=== PATIENT | female | born 1950 | race Caucasian/White ===

== ENCOUNTER → 2017-11-19 | Outpatient (CLI) | payer MEDICARE ==
--- NOTE | 2017-11-19 08:56 | CT ---
EXAMINATION TYPE: CT wrist RT wo con DATE OF EXAM: 11/19/2017 COMPARISON: NONE HISTORY: Fx, wrist pain, fall CT DLP: 97.3 mGycm Automated exposure control for dose reduction was used. FINDINGS: There is a comminuted intra-articular distal radial fracture with approximately 6 mm foreshortening f rom impaction injury. Extension into the radiocarpal joint is multifocal. The most displaced fracture fragment is seen of the ulnar aspect displaced 7 mm medially (ulnar) and 4 mm anteriorly. There is n o significant angulation. Alignment of the wrist is maintained. Degenerative cystic change are seen o f the carpal bones and joint space narrowing at the first carpometacarpal joint with small marginal o steophytes. Additionally there is an obliquely oriented noncomminuted fracture of the distal ulnar diaphysis with 1.1 cm foreshortening and 3 mm anterior displacement of the distal fracture fragment. This is not in tra-articular. There is surrounding soft tissue swelling evident of the wrist and visualized proximal hand. Evaluation of the tendons and ligaments is limited on CT. IMPRESSION: 1. COMMINUTED MULTIFOCAL INTRA-ARTICULAR FORESHORTENED AND MILDLY DISPLACED DISTAL RADIAL METAPHYSIS IMPACTION FRACTURE DESCRIBED ABOVE. 2. NONCOMMINUTED, NONINTRA-ARTICULAR MILDLY DISPLACED FORESHORTENED ULNAR DISTAL DIAPHYSEAL IMPACTION FRACTURE DESCRIBED ABOVE. 3. MODERATE ARTHROPATHY OF THE RIGHT PROXIMAL HAND AND WRIST. 4. SOFT TISSUE SWELLING FROM THE POSTTRAUMATIC FRACTURES.
== END | disposition home or self-care (01) ==
LOC: RADCTMAIN 07:27
PROVIDERS: ATTEND Orthopaedic Surgery
DX: S52.571D Other intraarticular fracture of lower end of right radius, subsequent encounter for closed fracture with routine healing (principal); S52.601D Unspecified fracture of lower end of right ulna, subsequent encounter for closed fracture with routine healing; M12.841 Other specific arthropathies, not elsewhere classified, right hand; M12.831 Other specific arthropathies, not elsewhere classified, right wrist; Z98.890 Other specified postprocedural states

== ENCOUNTER → 2018-01-28 | Outpatient (CLI) | payer MEDICARE ==
--- NOTE | 2018-01-28 13:36 | ECHOF ---
Referral Reason:R01.1 Cardiac Murmur MEASUREMENTS -------- HEIGHT: 165.1 cm WEIGHT: 86.2 kg BP: RVIDd: 2.5 cm (< 3.3) IVSd: 1.2 cm (0.6 - 1.1) LVIDd: 3.2 cm (3.9 - 5.3) LVPWd: 1.5 cm (0.6 - 1.1) IVSs: 1.4 cm LVIDs: 1.7 cm LVPWs: 1.7 cm LAESV Index (A-L): 20.93 ml/m Ao Diam: 2.6 cm (2.0 - 3.7) AV Cusp: 1.0 cm (1.5 - 2.6) LA Diam: 3.3 cm (2.7 - 3.8) MV EXCURSION: 10.412 mm (> 18.000) MV EF SLOPE: 28 mm/s (70 - 150) EPSS: 0.3 cm MV E Panda: 0.83 m/s MV DecT: 224 ms MV A Panda: 1.04 m/s MV E/A Ratio: 0.80 AV maxP.18 mmHg AV meanP.66 mmHg RAP: 5.00 mmHg RVSP: 30.29 mmHg FINDINGS -------- Sinus rhythm. This was a technically adequate study. The left ventricular size is normal. There is mild concentric left ventricular hypertrophy. Overa ll left ventricular systolic function is normal with, an EF between 55 - 60 %. The right ventricle is normal in size and function. The left atrium is normal in size. The right atrium is normal in size. Aortic valve is trileaflet and is moderately thickened. There is moderate aortic stenosis present. Peak/mean gradient across the Aortic Valve is 44.18mmHg / 25.66mmHg. Mild mitral annular calcification present. Mild mitral regurgitation is present. Mild tricuspid regurgitation present. There is no evidence of pulmonary hypertension. The right v entricular systolic pressure, as measured by Doppler, is 30.29mmHg. There is no pulmonic regurgitation present. The aortic root size is normal. Normal inferior vena cava with normal inspiratory collapse consistent with estimated right atrial pre ssure of 5 mmHg. There is no pericardial effusion. CONCLUSIONS -------- 1. Sinus rhythm. 2. This was a technically adequate study. 3. The left ventricular size is normal. 4. There is mild concentric left ventricular hypertrophy. 5. Overall left ventricular systolic function is normal with, an EF between 55 - 60 %. 6. The left atrium is normal in size. 7. Aortic valve is trileaflet and is moderately thickened. 8. There is moderate aortic stenosis present. 9. Peak/mean gradient across the Aortic Valve is 44.18mmHg / 25.66mmHg. 10. Mild mitral annular calcification present. 11. Mild mitral regurgitation is present. 12. Mild tricuspid regurgitation present. 13. There is no evidence of pulmonary hypertension. 14. There is no pulmonic regurgitation present. 15. The aortic root size is normal. 16. Normal inferior vena cava with normal inspiratory collapse consistent with estimated right atrial pressure of 5 mmHg. 17. There is no pericardial effusion. GRAVITY PROSPECTOR: Neha Browning RDCS
== END | disposition home or self-care (01) ==
LOC: RADECHMAIN 12:51
PROVIDERS: ATTEND Family Medicine
DX: I08.3 Combined rheumatic disorders of mitral, aortic and tricuspid valves (principal)
CPT/HCPCS: 93306

== ENCOUNTER → 2018-02-19 | Outpatient (CLI) | payer MEDICARE ==
--- NOTE | 2018-02-19 22:29 | CT ---
EXAMINATION TYPE: CT foot RT wo con DATE OF EXAM: 02/19/2018 COMPARISON: None HISTORY: 67-year-old female Right foot pain after injury. Dislocation TMT joint. TECHNIQUE: Contiguous axial scanning of the right foot without IV contrast. Coronal and sagittal javier nstructions performed. 3-D reconstructions generated on a dedicated independent workstation. CT DLP: 239 mGycm Automated exposure control for dose reduction was used. FINDINGS: Fractures both second metatarsal base and medial cuneiform at the expected attachment sites of [place] nc ligament. Fracture at the second metatarsal bases,. Additional chip fractures are present along the TMT joints involving curvilinear avulsion fracture fr agments measuring up to 6 mm primarily along the dorsal aspect of the TMT joint but also along the di stal lateral aspect of the cuboid and medial ventral aspect of the distal medial cuneiform. There see ms to be slight offset along the midfoot alignment especially at the first through third TMT joints a nd slight widening of the Lisfranc space. Os peroneum and type I accessory navicular incidentally noted. Generalized soft tissue swelling is present throughout the foot and ankle Nonspecific focus of calcification in the middle third Achilles tendon could represent sequela of chr onic intrasubstance tear. Incidental os trigonum. IMPRESSION: COMMINUTED FRACTURE SECOND METATARSAL BASE AND SMALL CURVILINEAR AVULSION FRACTURE FRAGMENTS MEASURIN G UP TO 6 MM ALONG THE TMT JOINT ARTICULATIONS COMPATIBLE WITH MULTIPLE FRACTURES DISRUPTING THE LISF RANC LIGAMENT COMPLEX. THERE APPEARS TO BE SLIGHT MIDFOOT SUBLUXATION ESPECIALLY AT THE LEVEL OF THE FIRST THROUGH THIRD TMT JOINTS. GENERALIZED SOFT TISSUE SWELLING AND EDEMA.
== END | disposition home or self-care (01) ==
LOC: RADCTMAIN 17:13
PROVIDERS: ATTEND Orthopaedic Surgery
DX: S92.321A Displaced fracture of second metatarsal bone, right foot, initial encounter for closed fracture (principal); M79.89 Other specified soft tissue disorders

== ENCOUNTER 2018-03-03 07:10 | Inpatient (IN) | payer MEDICARE ==
[2018-02-28 11:49] VITALS: BMI 31.6
[~2018-03-03 07:10] MED LIST: LIDOCAINE 1% 20 ML VIAL (10MG/ML) FOR IV START INTRADERMA PRN; ceFAZolin IN SWFI 2 GM/20 ML SYRINGE IVP ONE
[2018-03-03 07:52] LABS: Glucose,Whole Blood 100 mg/dL (75-99)
[2018-03-03] MEDS: LACTATED RINGERS 1,000 ML IV SCH (07:54)
[2018-03-03] MEDS ORDERED: HYDROCORTISONE SUCCINATE 100 MG/2 ML VIAL IV ONE (08:00)
[2018-03-03] MEDS ORDERED: PHENYLEPHRINE-0.9% NACL SYG 1 MG/10 ML SYRINGE ONE (08:57)
[2018-03-03] MEDS ORDERED: MIDAZOLAM 2 MG/2 ML VIAL ONE (08:57)
[2018-03-03] MEDS ORDERED: LIDOCAINE 1% INJ 10MG/ML (20 ML MDV) ONE (08:57)
[2018-03-03] MEDS ORDERED: PROPOFOL 10 MG/ML 20 ML VIAL IV ONE (08:57)
[2018-03-03] MEDS ORDERED: fentaNYL (PF) 50 MCG/ML 2 ML AMP ONE (08:57)
[2018-03-03] MEDS ORDERED: LACTATED RINGERS 1,000 ML IV ONE (09:53)
--- NOTE | 2018-03-03 11:28 | FL ---
Fluoroscopy HISTORY: Open reduction internal fixation 64 seconds fluoroscopy time supplied to the referring clinician. 7 intraoperative C-arm images docum ent the procedure. See dictated report from orthopedic surgery.
[2018-03-03] MEDS ORDERED: NALOXONE 0.4 MG/ML 1 ML VIAL IV PRN (11:32)
[2018-03-03] MEDS ORDERED: MAGNESIUM HYDROXIDE 2,400 MG/10 ML CUP PO PRN (11:32)
[2018-03-03] MEDS ORDERED: HYDROcodone/APAP 5-325MG 1 EACH TAB PO PRN (11:32)
[2018-03-03] MEDS ORDERED: HYDROmorphone 1 MG/ML 1 ML SYRINGE IVP PRN ×2 (11:32)
--- NOTE | 2018-03-03 11:47 | P.OP ---
Date of Procedure: 03/03/18 Preoperative Diagnosis: 1. Unstable right Lisfranc fracture dislocation 2. Adrenal Insufficiency on chronic steroids 3. History of prior fragility fracture Postoperative Diagnosis: Same Procedure(s) Performed: 1. Open reduction and internal fixation of right and second tarsometatarsal fracture dislocations (Lisfranc ORIF) 2. Manual application of stress by physician, right foot for radiography 3. Application of short-leg splint, right lower extremity Anesthesia: GETA Surgeon: Bon Rice Estimated Blood Loss (ml): 25 IV fluids (ml): 850 Pathology: none sent Condition: stable Disposition: PACU Indications for Procedure: The patient is a 67-year-old female with a medical history significant for chronic adrenaline sufficiency for which she requires chronic steroid therapy who presented to my office with a right midfoot injury. X-rays and a computed tomography scan showed an unstable Lisfranc injury. We discussed treat him and options. My recommendation was to perform a stress exam under anesthesia and then fix the unstable joints. The patient has had multiple prior fragility fractures and we discussed the role that her poor bone quality from chronic steroid use place and her current injuries and in her ability to heal this injury. We also discussed surgical treatment of Lisfranc injuries at length. We discussed open reduction and internal fixation versus fusion. Due to her multiple fractures and poor bone quality I recommended open reduction and internal fixation with bridging plate fixation rather than a fusion. The patient agreed to this. We discussed potential risks and competitions of surgery including but not limited to risk of anesthesia, risk of superficial infection, risk of deep infection, risk of delayed wound healing, risk of nonunion of the fracture site, risk of malunion to the fracture site, risk of loss of reduction, risk of postherpetic arthritis, risk of symptomatically hardware, risk of chronic pain, risk of chronic swelling, risk of need for further surgery, risk of DVT, risk of PE, risk of other medical complications, risk of an inability to regain preinjury level of function, and possibly loss of life or limb. Once again the patient understands her increased risk of having a complication due to her chronic steroid therapy. She provided her verbal and written consent to go forward with surgery. Operative Findings: The manual stress exam under x-ray showed obvious displacement of the first and second metatarsal bases. I interpreted this as an unstable injury requiring surgery. Description of Procedure: The patient was identified in preoperative holding and the correct right leg was marked with my initials. I reviewed the consent form with the patient and her family. All their questions were answered. The patient was then brought back to the operating room. She was positioned on the OR table where general anesthetic was administered. Prior to starting surgery timeout was performed identifying the correct patient, operative extremity, and procedure. C-arm fluoroscopy was then brought in and I performed a manual abduction stress exam on the right mid foot. There was gross displacement of the first and second metatarsal bases off their adjacent cuneiforms. I interpreted this as an unstable injury that required surgery. A comparison stress x-ray of the left foot was done to confirm. A tourniquet was applied to the proximal aspect of the right leg. All bony prominences were well-padded. A bump was placed under the right buttock internally rotating the leg to neutral. The right leg was then prepped and draped in the standard sterile fashion. The leg was then elevated, exsanguinated with an Esmarch bandage, and the tourniquet was inflated to 250 mmHg. I began by outlining a standard medial incision to address the medial and middle columns of the Lisfranc joint complex. The incision was marked out between the first and second metatarsals and was centered over the tarsometatarsal joint complex. A longitudinal incision was made with a scalpel. Dissection was carried down carefully to the subcutaneous tissue with tenotomy scissors. The EHL tendon sheath was incised longitudinally in line with the skin incision and retracted. The periosteum and capsule over the first and second tarsometatarsal joint was elevated sharply with a scalpel. The first and second tarsometatarsal joints were grossly unstable. There was obvious instability and I was able to easily pass a [place] elevator between the base of the second metatarsal and medial cuneiform. Using a scalpel and hemostat all gross debris was removed from the joint. The wound was copiously irrigated. I began by reducing the first tarsometatarsal joint. 0.0625 K wires were placed eccentric we across the joint once it was anatomically reduced. Clinically the joint appeared to be well aligned with no step-offs or displacement. The reduction was verified with fluoroscopy. I then contoured a 2.7 mm plate over the first tarsometatarsal joint. Nonlocking 2.7 mm screws were placed into the medial canal parker first metatarsal. The K wires were removed. Fluoroscopy was then brought in to verify that the first tarsometatarsal joint was reduced and the hardware was in anatomic position. I then used a large [id number] reduction clamp to bring the second metatarsal base into its keystone. 1 aparna of the clamp was placed over the lateral base of the second metatarsal and the other aparna was placed over the medial wall of the medial cuneiform. The clamp was gently tightened. On inspection the Lisfranc joint complex appeared to be nicely reduced. The reduction was verified with fluoroscopy. I then used a 2.5 mm drill bit to create a path from the medial cuneiform into the second metatarsal base. A fully threaded 3.5mm Lisfranc screw was then placed. I then elected to place a bridge plate over the second metatarsal. A 2.4 mm plate was contoured and 2.7 mm screws were placed into the middle cuneiform and second metatarsal bridging the second metatarsal base fracture. Fluoroscopic imaging was then brought in to verify position of the hardware and reduction of the medial and middle column of the Lisfranc joint complex. The joints appeared to be reduced and the hardware in acceptable position. An oblique view was then taken and there did not appear to be any step-off at the third, fourth, or fifth tarsometatarsal joints. Since the joints appeared to be adequately reduced I did not place a second lateral incision. I felt that the reduction was adequate and that adding a second incision would increase her risk of having wound breakdown given her chronic steroid use. Final fluoroscopic images including a stress x-ray were performed. The wounds were copiously irrigated. The periosteum was closed with a running 2-0 Vicryl. The deep subcutaneous layer was closed with 3-0 Monocryl. The skin was closed with 3-0 nylon. I verified that all instrument, sponge, and sharp counts were correct. The tourniquet was let down with a total tourniquet time of 90 minutes. A sterile dressing consisting of Betadine soaked Adaptic, 4 x 4, and web roll was applied. The drapes were taken down and a well-padded bulky [place] splint was placed with the ankle at neutral. The patient was then awoken from her anesthetic, transferred to a gucory, and brought to PACU having tolerated the procedure well. Plan: The patient is going to be admitted overnight for IV antibiotics, pain control, physical therapy, social work, and internal medicine consultation. She can discharge home tomorrow when her pain is controlled and discharge plans have been made. The family was instructed to contact her primary care physician an shipping associate to discuss further workup for her bone health given her multiple recent fractures. We will check a 25-hydroxy vitamin D level while she is in the hospital and corrected accordingly.
--- NOTE | 2018-03-03 11:47 | XR ---
Limited right foot HISTORY: Open reduction internal fixation 7 intraoperative C-arm images document the procedure.
[2018-03-03] MEDS ORDERED: HYDROmorphone 1 MG/ML 1 ML SYRINGE IVP ONE ×2 (12:03→12:07)
[2018-03-03] MEDS: ceFAZolin IN SWFI 2 GM/20 ML SYRINGE IVP SCH (15:25)
[2018-03-03] MEDS ORDERED: cycloSPORINE 0.05% OPHTH 0.4 ML DROPERETTE BOTH EYES PRN (17:27)
[2018-03-03 19:13] VITALS: RESP 16
--- NOTE | 2018-03-03 20:48 | P.ONQ ---
Anesthesiology Proc Note - PNB - Peripheral Nerve Block Performed Right Popliteal Single Time Out Performed: Yes Procedure Start Time: 12:30 Procedure Stop Time: 12:35 Indication: Acute Post-Operative Pain, Requested by physician Sedation Type: Sedate with meaningful contact maintained Preparation: Sterile Prep Needle Size: 50mm (2") Needle Gauge: 21 Technique: Ultrasound Injectate: 0.5% Ropivacaine (see comment for volume) (ropi .5% 20cc) Blood Aspirated: No Pain Paresthesia on Injection Noted: No Resistance on Injection: Normal Events: Uneventful and Well Tolerated
[2018-03-03 20:59] LABS: Glucose,Whole Blood 108 mg/dL (75-99)
[2018-03-03] MEDS ORDERED: SENNOSIDES-DOCUSATE SODIUM 1 EACH TAB PO SCH (21:00)
[2018-03-03] MEDS ORDERED: CITALOPRAM HYDROBROMIDE 10 MG TAB PO SCH (21:00)
[2018-03-03] MEDS: INSULIN ASPART 100 UNIT/ML 1 ML 10 ML VIAL SQ SCH (21:05)
[2018-03-03] MEDS: metFORMIN 500 MG TAB PO SCH (21:12)
[2018-03-03] MEDS: HYDROCORTISONE SUCCINATE 100 MG/2 ML VIAL IV SCH (21:12)
[2018-03-03] MEDS: HYDROcodone/APAP 5-325MG 1 EACH TAB PO PRN (22:46)
[2018-03-04] MEDS: HYDROCORTISONE SUCCINATE 100 MG/2 ML VIAL IV SCH ×2 (00:54→08:00)
[2018-03-04] MEDS: ceFAZolin IN SWFI 2 GM/20 ML SYRINGE IVP SCH (00:55)
[2018-03-04] MEDS: LACTATED RINGERS 1,000 ML IV SCH (06:13)
[2018-03-04] MEDS ORDERED: LEVOTHYROXINE 75 MCG TAB PO SCH (06:30)
[2018-03-04] MEDS ORDERED: LEVOTHYROXINE 100 MCG TAB PO SCH (06:30)
[2018-03-04 06:45] LABS: Glucose,Whole Blood 127 mg/dL (75-99)
[2018-03-04] MEDS: INSULIN ASPART 100 UNIT/ML 1 ML 10 ML VIAL SQ SCH ×2 (07:12→12:44)
[2018-03-04] MEDS: metFORMIN 500 MG TAB PO SCH (08:16)
[2018-03-04] MEDS ORDERED: FLUDROCORTISONE 0.1 MG TAB PO SCH (09:00)
[2018-03-04] MEDS ORDERED: ENOXAPARIN 40 MG/0.4 ML SYRINGE SQ SCH (09:00)
[2018-03-04] MEDS ORDERED: predniSONE 10 MG TAB PO SCH (09:00)
[2018-03-04] MEDS ORDERED: predniSONE 5 MG TAB PO SCH (09:00)
[2018-03-04] MEDS ORDERED: FENOFIBRATE 160 MG TAB PO SCH (09:00)
--- NOTE | 2018-03-04 09:03 | P.DS ---
Providers Date of admission: 03/03/18 07:10 Expected date of discharge: 03/04/18 Attending physician: Bon iRce Consults: 03/03/18 11:32 Consult Physician Routine Consulting Provider: Kyle Rodriguez Consult Reason/Comments: post op medical management Do you want consulting provider notified?: Yes Primary care physician: Georges Godoy - Discharge Diagnosis(es) (1) Nondisplaced fracture of second metatarsal bone of right foot Patient was admitted to the OR on 03/03/2018 to undergo open reduction and internal fixation of right and second tarsometatarsal fracture dislocations ( Lisfranc ORIF). She had failed conservative measures as an outpatient and desired to proceed with elective surgery after given informed consent. She underwent the above procedure which she tolerated well without complication. Postoperative hospital course has remained without complication. On day of discharge she is afebrile, vital signs stable, labs within acceptable ranges, tolerating by mouth meds and diet, voiding without difficulty, positive flatus, denies abdominal pain or calf pain, pain is controlled on oral pain medication and has no new complaints. Wound is benign, neurovascular status is intact, calf is soft and nontender, abdomen soft and nontender. Review of systems is negative for numbness, tingling, fever, chills, chest pain, shortness breath, nausea, vomiting, dizziness, headaches, slurred speech or other. Current Visit: Yes Status: Acute Priority: Medium Procedures: . Open reduction and internal fixation of right and second tarsometatarsal fracture dislocations (Lisfranc ORIF) Patient Condition at Discharge: Good Plan - Discharge Summary Discharge Rx Participant: No New Discharge Prescriptions: New Aspirin 325 mg PO BID #60 tab Docusate [Colace] 100 mg PO BID #60 capsule HYDROcodone/APAP 7.5-325MG [[place] 7.5-325] 1 - 2 each PO Q6HR PRN #42 tab PRN Reason: Pain No Action cycloSPORINE 0.05% OPHTH SOLN [Restasis] 1 applicator BOTH EYES Q12H PRN PRN Reason: Dry Eye(S) Max-3 Fatty Acids [Max-3] 1,000 mg PO DAILY Levothyroxine Sodium [Synthroid] 175 mcg PO MOTUWETHFRSA predniSONE 5 mg PO DAILY metFORMIN HCL [Glucophage] 500 mg PO BID Fenofibrate 160 mg PO DAILY Vitamin B Complex 1 each PO DAILY Levothyroxine Sodium [Synthroid] 262.5 mcg PO MARAVILLA Glucosam/Kyaw-Msm1/C/Jarrod/Bosw [Glucosamine-Chondroitin Tablet] 1 each PO DAILY Fludrocortisone Acetate 0.1 mg PO MOWEFR Fludrocortisone Acetate 0.05 mg PO SUTUTHSA Citalopram Hydrobromide [Citalopram HBr] 10 mg PO HS Cholecalciferol (Vitamin D3) [Vitamin D3] 2,000 unit PO DAILY Calcium Carbonate [Calcium] 600 mg PO DAILY Discharge Medication List Calcium Carbonate [Calcium] 600 mg PO DAILY 02/28/18 [History] Cholecalciferol (Vitamin D3) [Vitamin D3] 2,000 unit PO DAILY 02/28/18 [History] Citalopram Hydrobromide [Citalopram HBr] 10 mg PO HS 02/28/18 [History] Fenofibrate 160 mg PO DAILY 02/28/18 [History] Fludrocortisone Acetate 0.05 mg PO SUTUTHSA 02/28/18 [History] Fludrocortisone Acetate 0.1 mg PO MOWEFR 02/28/18 [History] Glucosam/Kyaw-Msm1/C/Jarrod/Bosw [Glucosamine-Chondroitin Tablet] 1 each PO DAILY 02/28/18 [History] Levothyroxine Sodium [Synthroid] 175 mcg PO MOTUWETHFRSA 02/28/18 [History] Levothyroxine Sodium [Synthroid] 262.5 mcg PO MARAVILLA 02/28/18 [History] Max-3 Fatty Acids [Max-3] 1,000 mg PO DAILY 02/28/18 [History] Vitamin B Complex 1 each PO DAILY 02/28/18 [History] cycloSPORINE 0.05% OPHTH SOLN [Restasis] 1 applicator BOTH EYES Q12H PRN [History] metFORMIN HCL [Glucophage] 500 mg PO BID 02/28/18 [History] predniSONE 5 mg PO DAILY 02/28/18 [History] Aspirin 325 mg PO BID #60 tab 03/04/18 [Rx] Docusate [Colace] 100 mg PO BID #60 capsule 03/04/18 [Rx] HYDROcodone/APAP 7.5-325MG [[place] 7.5-325] 1 - 2 each PO Q6HR PRN #42 tab [Rx] Follow up Appointment(s)/Referral(s): Bon Rice MD [Medical Doctor] - 10 Days Activity/Diet/Wound Care/Special Instructions: Maintain splint, Keep clean and dry Take meds as directed Follow-up with Dr. Rice in office Non weightbearing Discharge Disposition: HOME SELF-CARE
--- NOTE | 2018-03-04 09:33 | CONS ---
CONSULTATION DATE OF CONSULTATION: 03/03/2018 REASON FOR CONSULTATION: Medical management requested by Dr. Rice. CONSULTATION: This is a pleasant 67-year-old patient who follows with Dr. Godoy. Chronic stable medical conditions include adrenal insufficiency, hypothyroid, diabetes, depression. The patient underwent surgery for right foot Lisfranc fracture. Pain is controlled. No nausea, vomiting. Patient did get a liquid diet tonight. No chest pain, short of breath. No nausea, vomiting. Lying in bed. REVIEW OF SYSTEMS: CONSTITUTIONAL: None. HEENT: None. RESPIRATORY: None. CARDIOVASCULAR: None GASTROINTESTINAL: Denies. MUSCULOSKELETAL: Pain in the right foot. DERMATOLOGICAL: Negative. HEMATOLOGIC: None. LYMPHATICS None. PSYCHIATRY: None. NEUROLOGICAL: None. PAST MEDICAL HISTORY: Chronic adrenal insufficiency, hypothyroid, diabetes, depression. PAST SURGICAL HISTORY: Appendectomy, cholecystectomy, tonsillectomy, uterine ablation, left femur, left ankle repair, strabismus surgery. SOCIAL HISTORY: No smoking, no alcohol, . FAMILY HISTORY: Reviewed, noncontributory to presentation. HOME MEDICATIONS: Synthroid 26/2.5 mcg on Sundays, prednisone 5 mg a day, Glucophage 500 mg p.o. b.i.d., Restasis 0.05% one application both eyes q.12 p.r.n., vitamin B complex 1 tablet p.o. daily, [place]-3 one thousand mg p.o. daily, Synthroid 135 mcg on Saturday, Saturday, , Saturday, Saturday, Glucosamine chondroitin 1 tablet p.o. each, Florinef 0.05 p.o. Saturday, Saturday, , Saturday and 0.1 mg Saturday, Saturday and Saturday, Tricor 160 mg a day, Celexa 10 mg p.o. q.h.s., vitamin D3 two thousand units p.o. daily, calcium 600 mg p.o. daily. ALLERGIES: MORPHINE. PHYSICAL EXAMINATION: Temperature 98.2, pulse 78, respirations 16, blood pressure 120/75 pulse 97% on room air. GENERAL APPEARANCE: Average built, BMI of 31.6. Lying in bed, propped up in bed, comfortable. EYES: Pupils equal, conjunctivae are normal. HEENT: External appearance normal, oral cavity normal. NECK: JVD not raised. Mass not palpable. RESPIRATORY: Effort normal. Lungs are clear. CARDIOVASCULAR: First and second cycle no edema. ABDOMEN: Soft, nontender. Liver and spleen not palpable. LYMPHATIC: No lymph node palpable in neck or axillae. PSYCHIATRY: Alert and oriented x3. Mood and affect normal. NEUROLOGICAL: Pupils grossly intact. Power and sensation grossly intact. EXTREMITIES: Right foot in a dressing. INVESTIGATIONS: Accu-Cheks are noted. ASSESSMENT: 1. Right foot Lisfranc fracture surgical repair. 2. Chronic adrenal insufficiency. 3. Hypothyroid, thyroidism. 4. Diabetes mellitus type 2 on oral hypoglycemic. 5. Depression, not otherwise specified. Home medications are resumed. Accu-Cheks will be followed. Patient has got on Venodyne boots. Pain control is in place. Care was discussed the patient. Questions were answered. Thank you Dr. Rice. Patient to follow Dr. Godoy. Patient getting a tapering dose of steroids as per Dr. Skylar Morales, Endocrinology care was discussed with the patient. Questions were answered. Patient to follow with Dr. Godoy. MMODL / IJN: [id number] /
[2018-03-04 11:52] LABS: Glucose,Whole Blood 126 mg/dL (75-99)
[2018-03-04] MEDS ORDERED: MULTIVITAMINS, THERA 1 EACH TAB PO SCH (12:00)
[2018-03-04] MEDS: HYDROcodone/APAP 5-325MG 1 EACH TAB PO PRN (12:56)
--- NOTE | 2018-03-04 14:15 | PN ---
PROGRESS NOTE DATE OF SERVICE: 03/04/2018 PRESENTING COMPLAINT: Right foot surgery. INTERVAL HISTORY: Patient is status post right foot surgery. Pain is controlled. No nausea, vomiting, tolerating a diet. No chest pain or shortness of breath. Lying in bed. REVIEW OF SYSTEMS: Done for constitutional, cardiovascular, GI, pulmonary, musculoskeletal; relevant findings as above. CURRENT MEDICATIONS: Reviewed. PHYSICAL EXAMINATION: Temperature 98.3, pulse 73, respirations 16, blood pressure 120/54, pulse ox 94% on room air. GENERAL APPEARANCE: Lying in bed, comfortable. EYES: Pupils equal, conjunctivae are normal. HEENT: External appearance of nose and ears normal, oral cavity normal. NECK: No JVD, no mass palpable. RESPIRATORY: Effort normal. Lungs are clear. CARDIOVASCULAR: First and second sounds, no edema. ABDOMEN: Soft, nontender. Liver and spleen not palpable. PSYCHIATRY: Alert and oriented x3. Mood and affect normal. EXTREMITIES: Right foot in a dressing. INVESTIGATIONS: Accu-Cheks are noted. ASSESSMENT: 1. Right foot Lisfranc fracture followed by surgical repair. 2. Chronic adrenal insufficiency. 3. Hypothyroid. 4. Diabetes mellitus type 2 on oral hypoglycemic. 5. Depression, not otherwise specified. PLAN: Patient doing well. Steroids as per record by Dr. Skylar Morales. Care was discussed with the patient. Patient doing well. MMODL / IJN: [id number] /
[2018-03-04 14:33] VITALS: BP 105/55; PULSE 62; TEMP 98.9
[2018-03-04 21:44] LABS: Hemoglobin A1C 5.9 % (4.0-6.0)
[2018-03-05] MEDS ORDERED: FLUDROCORTISONE 0.1 MG TAB PO SCH
[2018-03-09] MEDS ORDERED: LEVOTHYROXINE SODIUM PO SCH (06:30)
== END 2018-03-04 13:55 | disposition home or self-care (01) | DRG 504 ==
LOC: 2ORMAIN 07:10 → 3SUR 11:34
PROVIDERS: ADMIT Orthopaedic Surgery; ATTEND Orthopaedic Surgery
PROC: 0QSN04Z Reposition Right Metatarsal with Internal Fixation Device, Open Approach (ICD-10-PCS; principal; 2018-03-03 09:00)
DX: S92.321A Displaced fracture of second metatarsal bone, right foot, initial encounter for closed fracture (principal); E27.1 Primary adrenocortical insufficiency; E03.9 Hypothyroidism, unspecified; E11.9 Type 2 diabetes mellitus without complications; F32.9 Major depressive disorder, single episode, unspecified; Z79.52 Long term (current) use of systemic steroids; Z79.84 Long term (current) use of oral hypoglycemic drugs; Z79.899 Other long term (current) drug therapy; Z79.890 Hormone replacement therapy; E78.5 Hyperlipidemia, unspecified; M79.7 Fibromyalgia; Z88.5 Allergy status to narcotic agent; Z88.8 Allergy status to other drugs, medicaments and biological substances; Z90.49 Acquired absence of other specified parts of digestive tract; Z83.3 Family history of diabetes mellitus; Z82.49 Family history of ischemic heart disease and other diseases of the circulatory system; S92.311A Displaced fracture of first metatarsal bone, right foot, initial encounter for closed fracture
CPT/HCPCS: 82306; 83036

== ENCOUNTER → 2019-11-05 | Outpatient (CLI) | payer MEDICARE ==
[~2019-11-05] MED LIST changes: +DENOSUMAB 60 MG/ML 1 ML SYRINGE SQ NR; -LIDOCAINE 1% 20 ML VIAL (10MG/ML) FOR IV START INTRADERMA PRN; -ceFAZolin IN SWFI 2 GM/20 ML SYRINGE IVP ONE
[2019-11-05 09:14] VITALS: BP 173/86; PULSE 85; RESP 18; TEMP 98
== END | disposition home or self-care (01) ==
LOC: PROCWHC3 09:02
PROVIDERS: ATTEND Internal Medicine
DX: M81.0 Age-related osteoporosis without current pathological fracture (principal)
CPT/HCPCS: 96372; J0897

== ENCOUNTER → 2020-11-24 | Outpatient (CLI) | payer MEDICARE ==
[2020-11-24 14:02] VITALS: BP 161/82; PULSE 92; TEMP 98.2
== END ==
LOC: PROCWHC3 13:57
PROVIDERS: ATTEND Internal Medicine
DX: M81.0 Age-related osteoporosis without current pathological fracture (principal); Z88.5 Allergy status to narcotic agent
CPT/HCPCS: 96372; J0897

== ENCOUNTER 2021-02-26 13:44 | Emergency (ER) | payer MEDICARE ==
[2021-02-26 13:56] VITALS: RESP 18; TEMP 98.7
--- NOTE | 2021-02-26 15:07 | ED ---
General Adult HPI - General Chief complaint: Recheck/Abnormal Lab/Rx Stated complaint: not feeling well Time Seen by Provider: 02/26/21 15:04 Source: patient, family Mode of arrival: ambulatory Limitations: no limitations - History of Present Illness Initial comments: Patient presents to the ED with her daughter for evaluation. Patient states that she has felt "ucky" for the past 3 days or so. Patient also states that she has alsoe been diaphoretic at times over the past 3 days, and she also states that she has been congested for the past 3 days. Patient admits to having a cough as well, but she states that she has had a cough for the past 6 months, and she states that it is unchanged. 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 Patient states that she does have seasonal allergies as well, and she states that her allergies have been worse recently. Patient denies having any pain, fever or chills, headache, focal numbness/weakness/neuro deficit, chest pain or pressure, dyspnea, palpitations, dizziness, nausea/vomiting/diarrhea, bloody or melanotic stool, abdominal pain, dysuria/hematuria/urinary frequency/urinary symptoms, decreased urine output, leg or calf swelling or pain, or any other symptoms or complaints. Patient states that she is fully vaccinated for Covid. - Related Data Home Medications Medication Instructions Recorded Confirmed Cholecalciferol (Vitamin D3) 2,000 unit PO DAILY 02/28/18 11/24/20 [Vitamin D3] Citalopram Hydrobromide 10 mg PO HS 02/28/18 11/24/20 [Citalopram HBr] Fenofibrate 160 mg PO DAILY 02/28/18 11/24/20 Fludrocortisone Acetate 0.05 mg PO SUTUTHSA 02/28/18 11/24/20 Fludrocortisone Acetate 0.1 mg PO MOWEFR 02/28/18 11/24/20 Glucosam/Kyaw-Msm1/C/Jarrod/Bosw 1 each PO DAILY 02/28/18 11/24/20 [Glucosamine-Chondroitin Tablet] Levothyroxine Sodium [Synthroid] 175 mcg PO MOTUWETHFRSA 02/28/18 11/24/20 [place]-3 Fatty Acids [[place]-3] 1,000 mg PO DAILY 02/28/18 11/24/20 Vitamin B Complex 1 each PO DAILY 02/28/18 11/24/20 cycloSPORINE 0.05% OPHTH SOLN 1 applicator BOTH EYES Q12H PRN 02/28/18 11/24/20 [Restasis] metFORMIN HCL [Glucophage] 500 mg PO BID 02/28/18 11/24/20 predniSONE 5 mg PO DAILY 02/28/18 11/24/20 Allergies Allergy/AdvReac Type Severity Reaction Status Date / Time morphine Allergy Itching Verified 02/26/21 13:56 Review of Systems ROS Statement: Those systems with pertinent positive or pertinent negative responses have been documented in the HPI. ROS Other: All systems not noted in ROS Statement are negative. Past Medical History Past Medical History: Diabetes Mellitus, Hyperlipidemia, Thyroid Disorder Additional Past Medical History / Comment(s): Adrenal Insufficiency History of Any Multi-Drug Resistant Organisms: None Reported Past Surgical History: Appendectomy, Cholecystectomy, Orthopedic Surgery, Tonsillectomy, Uterine Ablation Additional Past Surgical History / Comment(s): L Femur, L ankle repair; Strabismus surgery; leaking aortic valve Additional Past Anesthesia/Blood Transfusion Reaction / Comment(s): difficult to wake up Past Psychological History: Depression Smoking Status: Never smoker Past Alcohol Use History: None Reported Past Drug Use History: None Reported - Past Family History Mother Family Medical History: No Reported History General Exam Limitations: no limitations General appearance: alert, in no apparent distress Head exam: Present: atraumatic, normocephalic Eye exam: Present: normal appearance, PERRL, EOMI ENT exam: Present: normal oropharynx, mucous membranes moist Neck exam: Present: other (Trachea is in midline) Respiratory exam: Present: normal lung sounds bilaterally. Absent: respiratory distress, wheezes, rales, rhonchi, stridor Cardiovascular Exam: Present: regular rate, normal rhythm, systolic murmur, other (Normal radial pulses bilaterally) GI/Abdominal exam: Present: soft. Absent: distended, tenderness, guarding Extremities exam: Absent: tenderness, pedal edema, calf tenderness Neurological exam: Present: alert, oriented X3. Absent: motor sensory deficit Psychiatric exam: Present: normal affect, normal mood Skin exam: Present: warm, dry, intact, normal color Course Vital Signs 02/26/21 02/26/21 02/26/21 13:53 15:27 15:30 Temperature 98.7 F Pulse Rate 83 75 Respiratory 18 16 18 Rate Blood Pressure 159/73 151/57 O2 Sat by Pulse 99 97 96 Oximetry 02/26/21 02/26/21 16:00 16:30 Temperature Pulse Rate 80 Respiratory 18 Rate Blood Pressure 134/63 134/63 O2 Sat by Pulse 96 Oximetry - Reevaluation(s) Reevaluation #1: 02/26/21 18:05 Patient continues to state that she feels fine in the emergency department. Patient remains alert and breathing comfortably. Patient's vital signs are reassuring. Patient is aware of her test results, and she feels comfortable going home at this time. Patient was counseled about malaise and possible causes of her nasal congestion, including seasonal allergies and viral infections. Patient was instructed to have a low threshold for return to the emergency department should her symptoms worsen. Patient was also instructed to follow up closely with her primary care provider. She was clearly explained return and follow-up instructions, and she feels comfortable with this plan. Patient was also instructed to continue taking her stress dose steroids while she is feeling unwell. EKG Findings - EKG Comments: EKG Findings:: Normal sinus rhythm, no ectopy, ventricular rate of 74 bpm, normal SD and QRS intervals, normal QT interval, normal axis, no ST or T-wave abnormality Medical Decision Making - Medical Decision Making Patient's labs and chest x-ray are fairly unremarkable. Patient's TSH is low, but her T3 and T4 levels are within normal limits. I do not suspect an emergent medical condition at this time. I suspect that the patient's symptoms may be secondary to seasonal allergies or possibly a viral infection. Patient was instructed to continue taking her stress dose steroids while she is feeling unwell. 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 Patient feels comfortable with this plan. - Lab Data Result diagrams: 02/26/21 15:46 02/26/21 15:46 Lab Results 02/26/21 02/26/21 02/26/21 Range/Units 15:46 15:46 15:46 WBC 7.1 (3.8-10.6) k/uL RBC 4.57 (3.80-5.40) m/uL Hgb 14.7 (11.4-16.0) gm/dL Hct 44.4 (34.0-46.0) % MCV 97.2 (80.0-100.0) fL MCH 32.1 (25.0-35.0) pg MCHC 33.1 (31.0-37.0) g/dL RDW 12.8 (11.5-15.5) % Plt Count 277 (150-450) k/uL MPV 8.6 Neutrophils % 77 % Lymphocytes % 15 % Monocytes % 4 % Eosinophils % 2 % Basophils % 1 % Neutrophils # 5.5 (1.3-7.7) k/uL Lymphocytes # 1.1 (1.0-4.8) k/uL Monocytes # 0.3 (0-1.0) k/uL Eosinophils # 0.2 (0-0.7) k/uL Basophils # 0.1 (0-0.2) k/uL PT 10.3 (9.0-12.0) sec INR 1.0 (<1.2) APTT 22.2 (22.0-30.0) sec Sodium (137-145) mmol/L Potassium (3.5-5.1) mmol/L Chloride (98-107) mmol/L Carbon Dioxide (22-30) mmol/L Anion Gap mmol/L BUN (7-17) mg/dL Creatinine (0.52-1.04) mg/dL Est GFR (CKD-EPI)AfAm (>60 ml/min/1.73 sqM) Est GFR (CKD-EPI)NonAf (>60 ml/min/1.73 sqM) Glucose (74-99) mg/dL Plasma Lactic Acid Bert (0.7-2.0) mmol/L Calcium (8.4-10.2) mg/dL Magnesium (1.6-2.3) mg/dL Total Bilirubin (0.2-1.3) mg/dL AST (14-36) U/L ALT (4-34) U/L Alkaline Phosphatase (38-126) U/L Troponin I (0.000-0.034) ng/mL Total Protein (6.3-8.2) g/dL Albumin (3.5-5.0) g/dL TSH (0.465-4.680) mIU/L Free T4 (0.78-2.19) ng/dL Free T3 pg/mL (2.8-5.3) pg/ml Urine Color Colorless Urine Appearance Clear (Clear) Urine pH 5.5 (5.0-8.0) Ur Specific [place] 1.007 (1.001-1.035) Urine Protein Negative (Negative) Urine Glucose (UA) Negative (Negative) Urine Ketones Negative (Negative) Urine Blood Negative (Negative) Urine Nitrite Negative (Negative) Urine Bilirubin Negative (Negative) Urine Urobilinogen <2.0 (<2.0) mg/dL Ur Leukocyte Esterase Negative (Negative) Coronavirus (PCR) (Not Detectd) 02/26/21 02/26/21 02/26/21 Range/Units 15:46 15:46 15:46 WBC (3.8-10.6) k/uL RBC (3.80-5.40) m/uL Hgb (11.4-16.0) gm/dL Hct (34.0-46.0) % MCV (80.0-100.0) fL MCH (25.0-35.0) pg MCHC (31.0-37.0) g/dL RDW (11.5-15.5) % Plt Count (150-450) k/uL MPV Neutrophils % % Lymphocytes % % Monocytes % % Eosinophils % % Basophils % % Neutrophils # (1.3-7.7) k/uL Lymphocytes # (1.0-4.8) k/uL Monocytes # (0-1.0) k/uL Eosinophils # (0-0.7) k/uL Basophils # (0-0.2) k/uL PT (9.0-12.0) sec INR (<1.2) APTT (22.0-30.0) sec Sodium 137 (137-145) mmol/L Potassium 5.1 (3.5-5.1) mmol/L Chloride 106 (98-107) mmol/L Carbon Dioxide 23 (22-30) mmol/L Anion Gap 8 mmol/L BUN 22 H (7-17) mg/dL Creatinine 1.41 H (0.52-1.04) mg/dL Est GFR (CKD-EPI)AfAm 43 (>60 ml/min/1.73 sqM) Est GFR (CKD-EPI)NonAf 38 (>60 ml/min/1.73 sqM) Glucose 134 H (74-99) mg/dL Plasma Lactic Acid Bert 1.1 (0.7-2.0) mmol/L Calcium 9.7 (8.4-10.2) mg/dL Magnesium 1.8 (1.6-2.3) mg/dL Total Bilirubin 0.4 (0.2-1.3) mg/dL AST 44 H (14-36) U/L ALT 47 H (4-34) U/L Alkaline Phosphatase 34 L (38-126) U/L Troponin I <0.012 (0.000-0.034) ng/mL Total Protein 6.7 (6.3-8.2) g/dL Albumin 4.4 (3.5-5.0) g/dL TSH 0.137 L (0.465-4.680) mIU/L Free T4 (0.78-2.19) ng/dL Free T3 pg/mL (2.8-5.3) pg/ml Urine Color Urine Appearance (Clear) Urine pH (5.0-8.0) Ur Specific [place] (1.001-1.035) Urine Protein (Negative) Urine Glucose (UA) (Negative) Urine Ketones (Negative) Urine Blood (Negative) Urine Nitrite (Negative) Urine Bilirubin (Negative) Urine Urobilinogen (<2.0) mg/dL Ur Leukocyte Esterase (Negative) Coronavirus (PCR) (Not Detectd) 02/26/21 02/26/21 Range/Units 15:46 15:46 WBC (3.8-10.6) k/uL RBC (3.80-5.40) m/uL Hgb (11.4-16.0) gm/dL Hct (34.0-46.0) % MCV (80.0-100.0) fL MCH (25.0-35.0) pg MCHC (31.0-37.0) g/dL RDW (11.5-15.5) % Plt Count (150-450) k/uL MPV Neutrophils % % Lymphocytes % % Monocytes % % Eosinophils % % Basophils % % Neutrophils # (1.3-7.7) k/uL Lymphocytes # (1.0-4.8) k/uL Monocytes # (0-1.0) k/uL Eosinophils # (0-0.7) k/uL Basophils # (0-0.2) k/uL PT (9.0-12.0) sec INR (<1.2) APTT (22.0-30.0) sec Sodium (137-145) mmol/L Potassium (3.5-5.1) mmol/L Chloride (98-107) mmol/L Carbon Dioxide (22-30) mmol/L Anion Gap mmol/L BUN (7-17) mg/dL Creatinine (0.52-1.04) mg/dL Est GFR (CKD-EPI)AfAm (>60 ml/min/1.73 sqM) Est GFR (CKD-EPI)NonAf (>60 ml/min/1.73 sqM) Glucose (74-99) mg/dL Plasma Lactic Acid Bert (0.7-2.0) mmol/L Calcium (8.4-10.2) mg/dL Magnesium (1.6-2.3) mg/dL Total Bilirubin (0.2-1.3) mg/dL AST (14-36) U/L ALT (4-34) U/L Alkaline Phosphatase (38-126) U/L Troponin I (0.000-0.034) ng/mL Total Protein (6.3-8.2) g/dL Albumin (3.5-5.0) g/dL TSH (0.465-4.680) mIU/L Free T4 1.89 (0.78-2.19) ng/dL Free T3 pg/mL 4.2 (2.8-5.3) pg/ml Urine Color Urine Appearance (Clear) Urine pH (5.0-8.0) Ur Specific [place] (1.001-1.035) Urine Protein (Negative) Urine Glucose (UA) (Negative) Urine Ketones (Negative) Urine Blood (Negative) Urine Nitrite (Negative) Urine Bilirubin (Negative) Urine Urobilinogen (<2.0) mg/dL Ur Leukocyte Esterase (Negative) Coronavirus (PCR) Not Detected (Not Detectd) - Radiology Data Radiology results: report reviewed (Chest x-ray: Pleural and pulmonary scarring on the left lateral chest wall. Normal heart. No definite acute lung disease.) Disposition Clinical Impression: Malaise, Nasal congestion Disposition: HOME SELF-CARE Condition: Stable Instructions (If sedation given, give patient instructions): Allergic Rhinitis (ED), Weakness (ED), Fatigue (ED) Additional Instructions: Return to the ER immediately should you develop any significant pain, a fever, chest pain, shortness of breath/trouble breathing, feeling dizzy or faint, vomiting, or new or worsening symptoms. Follow up closely with your primary care provider. Is patient prescribed a controlled substance at d/c from ED?: No Referrals: Georges Godoy MD [Primary Care Provider] - 1-2 days Time of Disposition: 18:10
[2021-02-26 15:59] LABS: Basophils # (A) 0.1 k/uL (0-0.2); Basophils % (A) 1 %; Eosinophils # (A) 0.2 k/uL (0-0.7); Eosinophils % (A) 2 %; HCT 44.4 % (34.0-46.0); HGB 14.7 gm/dL (11.4-16.0); Lymphocytes # (A) 1.1 k/uL (1.0-4.8); Lymphocytes % (A) 15 %; MCH 32.1 pg (25.0-35.0); MCHC 33.1 g/dL (31.0-37.0); MCV 97.2 fL (80.0-100.0); Mean Platelet Volume 8.6; Monocytes # (A) 0.3 k/uL (0-1.0); Monocytes % (A) 4 %; Neutrophils # (A) 5.5 k/uL (1.3-7.7); Neutrophils % (A) 77 %; Platelet Count 277 k/uL (150-450); RBC 4.57 m/uL (3.80-5.40); RDW 12.8 % (11.5-15.5); WBC 7.1 k/uL (3.8-10.6)
[2021-02-26 16:02] LABS: Appearance,Urine Clear (Clear); Bilirubin,Urine Negative (Negative); Blood,Urine Negative (Negative); Color,Urine Colorless; Glucose,Urine (UA) Negative (Negative); Ketones,Urine Negative (Negative); Leukocyte Esterase,Urine Negative (Negative); Nitrite,Urine Negative (Negative); PH, Urine 5.5 (5.0-8.0); Protein,Urine Negative (Negative); Specific Gravity,Urine 1.007 (1.001-1.035); Urobilinogen,Urine <2.0 mg/dL (<2.0)
[2021-02-26 16:11] LABS: Albumin 4.4 g/dL (3.5-5.0); Calcium 9.7 mg/dL (8.4-10.2); Magnesium 1.8 mg/dL (1.6-2.3); Potassium 5.1 mmol/L (3.5-5.1); Total Bilirubin 0.4 mg/dL (0.2-1.3); Total Protein 6.7 g/dL (6.3-8.2)
[2021-02-26 16:16] LABS: Partial Thromboplastin Time 22.2 sec (22.0-30.0); Prothrombin Time 10.3 sec (9.0-12.0)
[2021-02-26 16:44] VITALS: PULSE 80
--- NOTE | 2021-02-26 17:28 | XR ---
EXAMINATION TYPE: XR chest 2V DATE OF EXAM: 02/26/2021 COMPARISON: NONE HISTORY: Cough TECHNIQUE: 2 views FINDINGS: Heart and mediastinum are normal. Lungs are clear of consolidation. There is some minimal a pparent calcified pleural plaque on the left chest wall. Bony thorax is intact. There is pins fixing the left shoulder. There is no pleural effusion. IMPRESSION: Pleural and pulmonary scarring on the left lateral chest wall. Normal heart. No definite acute lung d isease.
[2021-02-26 17:41] LABS: T4, Free (Free Thyroxine) 1.89 ng/dL (0.78-2.19)
[2021-02-26 18:29] VITALS: BP 151/60
== END 2021-02-26 18:29 | disposition home or self-care (01) ==
LOC: EC 13:44
DX: R09.81 Nasal congestion (principal); R53.81 Other malaise; E11.9 Type 2 diabetes mellitus without complications; E78.5 Hyperlipidemia, unspecified; E07.9 Disorder of thyroid, unspecified; F32.9 Major depressive disorder, single episode, unspecified; Z79.84 Long term (current) use of oral hypoglycemic drugs; Z88.5 Allergy status to narcotic agent; Z90.49 Acquired absence of other specified parts of digestive tract; Z90.89 Acquired absence of other organs; Z20.822 Contact with and (suspected) exposure to COVID-19
CPT/HCPCS: 36415; 71046; 80053; 81003; 83605; 83735; 84439; 84443; 84481; 84484; 85025; 85610; 85730; 87635; 93005; 99284

== ENCOUNTER → 2021-10-25 | Outpatient (CLI) | payer MEDICARE ==
[2021-10-25 10:27] VITALS: BP 177/83; PULSE 71; RESP 15; TEMP 97.9
== END ==
LOC: PROCWHC3 10:18
PROVIDERS: ATTEND Internal Medicine
DX: M81.0 Age-related osteoporosis without current pathological fracture (principal); Z88.5 Allergy status to narcotic agent
CPT/HCPCS: 96372; J0897

== ENCOUNTER → 2022-04-30 | Outpatient (CLI) | payer MEDICARE ==
[~2022-04-30] MED LIST changes: -DENOSUMAB 60 MG/ML 1 ML SYRINGE SQ NR; +DENOSUMAB 60 MG/ML 1 ML SYRINGE SQ ONE
[2022-04-30 09:35] VITALS: BP 186/84; PULSE 74; RESP 16; TEMP 97.9
== END ==
LOC: PROCWHC3 09:08
PROVIDERS: ATTEND Internal Medicine
DX: M81.0 Age-related osteoporosis without current pathological fracture (principal); Z88.5 Allergy status to narcotic agent
CPT/HCPCS: 96372; J0897

== ENCOUNTER → 2022-11-02 | Outpatient (CLI) | payer MEDICARE ==
[~2022-11-02] MED LIST changes: +DENOSUMAB 60 MG/ML 1 ML SYRINGE SQ NR; -DENOSUMAB 60 MG/ML 1 ML SYRINGE SQ ONE
[2022-11-02 13:37] VITALS: BP 171/71; PULSE 76; RESP 16; TEMP 97.8
== END ==
LOC: PROCWHC3 13:25
PROVIDERS: ATTEND Internal Medicine
DX: M81.0 Age-related osteoporosis without current pathological fracture (principal)
CPT/HCPCS: 96372; J0897

== ENCOUNTER → 2023-06-24 | Outpatient (CLI) | payer MEDICARE ==
[2023-06-24 14:48] VITALS: BP 169/72; PULSE 69; RESP 16; TEMP 97.6
== END ==
LOC: PROCWHC3 13:56
PROVIDERS: ATTEND Internal Medicine
DX: M81.0 Age-related osteoporosis without current pathological fracture (principal)
CPT/HCPCS: 96372; J0897

== ENCOUNTER 2023-09-03 06:54 | Day surgery (SDC) | payer MEDICARE ==
[2023-08-30 15:31] VITALS: BMI 30.9
[~2023-09-03 06:54] MED LIST changes: -DENOSUMAB 60 MG/ML 1 ML SYRINGE SQ NR; +LIDOCAINE 1% (10MG/ML) FOR IV START INTRADERMA PRN
[2023-09-03] MEDS: LACTATED RINGERS 1,000 ML IV SCH (07:21)
[2023-09-03 07:31] VITALS: TEMP 97.8
[2023-09-03 07:38] LABS: Glucose,Whole Blood 134 mg/dL (70-110)
[2023-09-03] MEDS ORDERED: ONDANSETRON 4 MG/2 ML VIAL ONE (07:39)
[2023-09-03] MEDS: ONDANSETRON 4 MG/2 ML VIAL IVP ONE (07:40)
[2023-09-03] MEDS ORDERED: LIDOCAINE 1% INJ 10MG/ML (20 ML MDV) ONE (08:07)
[2023-09-03] MEDS ORDERED: PROPOFOL 10 MG/ML 20 ML VIAL IV ONE (08:07)
--- NOTE | 2023-09-03 08:38 | P.PCN ---
Date of Procedure: 09/03/23 Procedure(s) Performed: BRIEF HISTORY: Patient is a 73-year-old pleasant white female scheduled for an elective colonoscopy as a part of evaluation of prior history of colon polyps. Last colonoscopy was 5 years ago. PROCEDURE PERFORMED: Colonoscopy. PREOPERATIVE DIAGNOSIS: History of colon polyps. IV sedation per Anesthesia. PROCEDURE: After informed consent was obtained, the patient, was brought into the endoscopy unit. IV sedation was administered by Anesthesia under continuous monitoring. Digital rectal examination was normal. Initially the Olympus CF-160 flexible video colonoscope was then inserted in the rectum, gradually advanced into the right colon with moderate difficulty. Despite multiple attempts I was not able to advance the scope into the cecum. Careful examination was performed as the scope was gradually being withdrawn. Ileocecal valve was visualized and appeared normal. Prep was excellent. Mucosa of the ascending colon, transverse colon, descending colon, sigmoid colon, and rectum appeared normal. Scattered sigmoid diverticulosis seen. Retroflexion was performed in the rectum and no lesions were seen. The patient tolerated the procedure well. IMPRESSION: Normal-appearing colon from rectum to right colon with no evidence of colorectal neoplasia Scattered sigmoid diverticulosis RECOMMENDATIONS: Findings of this examination were discussed with the patient as well as a family. She was advised to have a repeat screening colonoscopy at age 79..
[2023-09-03 08:46] VITALS: RESP 16
[2023-09-03 08:56] LABS: Glucose,Whole Blood 113 mg/dL (70-110)
[2023-09-03] MEDS: droPERidol 5 MG/2 ML VIAL IVP ONE (09:35)
[2023-09-03] MEDS: HYDROCORTISONE SUCCINATE 100 MG/2 ML VIAL IVP ONE (10:40)
[2023-09-03 11:15] VITALS: BP 157/78; PULSE 81
== END 2023-09-03 11:53 | disposition home or self-care (01) ==
LOC: ORWHC2ENDO 06:54
PROVIDERS: ATTEND Internal Medicine Gastroenterology
DX: Z12.11 Encounter for screening for malignant neoplasm of colon (principal); K57.30 Diverticulosis of large intestine without perforation or abscess without bleeding; E78.5 Hyperlipidemia, unspecified; G47.33 Obstructive sleep apnea (adult) (pediatric); E11.9 Type 2 diabetes mellitus without complications; E07.9 Disorder of thyroid, unspecified; F03.90 Unspecified dementia, unspecified severity, without behavioral disturbance, psychotic disturbance, mood disturbance, and anxiety; F32.A Depression, unspecified; E27.1 Primary adrenocortical insufficiency; Z86.010 Personal history of colon polyps; Z88.5 Allergy status to narcotic agent; Z79.890 Hormone replacement therapy; Z79.899 Other long term (current) drug therapy; Z79.84 Long term (current) use of oral hypoglycemic drugs; Z98.890 Other specified postprocedural states
CPT/HCPCS: J1720; J2405; J2001; J2704; J1790; G0105

== ENCOUNTER 2023-09-03 16:56 | Observation (INO) | payer MEDICARE ==
--- NOTE | 2023-09-03 17:20 | ED ---
General Adult HPI - General Source: patient, RN notes reviewed Mode of arrival: ambulatory Limitations: no limitations <Meryl Frost - Last Filed: 09/03/23 18:17> - General Source: patient, family, RN notes reviewed Mode of arrival: ambulatory Limitations: no limitations <Brandon Pinto - Last Filed: 09/03/23 21:03> - General Stated complaint: Post Colonoscopy today, cant stay awake Time Seen by Provider: 09/03/23 17:18 - History of Present Illness Initial comments: Quick note: 73 year old female presents to the emergency department for evaluation of continued fatigue following colonoscopy this morning. Patients family states that post op told her that the medications should be worn off by now but she continues to be "out of it." She has a history of addisons disease. (Meryl Frost) Patient is a pleasant 73-year-old female present to the emergency department family with concerns for drowsiness. Patient did have colonoscopy done this morning. Patient has been drowsy all day. Patient did vomit twice. Patient did not have her steroids this morning however did get a dose during her proced ure. Patient still has some concerns of some nausea however no vomiting. Family is concerned of patient being drowsy still. (Brandon Pinto) - Related Data Home Medications Medication Instructions Recorded Confirmed Fenofibrate 160 mg PO DAILY@1200 02/28/18 09/03/23 Fludrocortisone Acetate 0.05 mg PO SUTUTHSA 02/28/18 09/03/23 Fludrocortisone Acetate 0.1 mg PO MOWEFR 02/28/18 09/03/23 Levothyroxine Sodium [Synthroid] 150 mcg PO DAILY 02/28/18 09/03/23 metFORMIN HCL [Glucophage] 500 mg PO BID 02/28/18 09/03/23 predniSONE 5 mg PO DAILY 02/28/18 09/03/23 Atorvastatin [Lipitor] 20 mg PO 1200 02/26/21 09/03/23 Citalopram Hydrobromide [CeleXA] 40 mg PO DAILY@1200 02/26/21 09/03/23 buPROPion XL [Wellbutrin XL] 150 mg PO DAILY 02/26/21 09/03/23 Aspirin [[place] Aspirin EC] 81 mg PO DAILY 08/30/23 09/03/23 Cholecalciferol [Vitamin D3 (25 1 tab PO DAILY 08/30/23 09/03/23 Mcg = 1000 Iu)] Folic Acid 800 mg PO DAILY 08/30/23 09/03/23 L.acidoph,Paracasei, B.lactis 1 tab PO DAILY 08/30/23 09/03/23 [Probiotic] Levocetirizine Dihydrochloride 5 mg PO DAILY 08/30/23 09/03/23 [Xyzal] Mecobalamin [Vitamin B-12] 1,000 mcg PO DAILY 08/30/23 09/03/23 Memantine [Namenda] 10 mg PO BID 08/30/23 09/03/23 cycloSPORINE 0.05% OPHTH SOLN 1 applicator BOTH EYES Q12H 08/30/23 09/03/23 [Restasis] Allergies Allergy/AdvReac Type Severity Reaction Status Date / Time morphine Allergy Itching Verified 09/03/23 07:19 Review of Systems ROS Other: All systems not noted in ROS Statement are negative. <Meryl Frost - Last Filed: 09/03/23 18:17> ROS Other: All systems not noted in ROS Statement are negative. Constitutional: Denies: fever Eyes: Denies: eye pain Gastrointestinal: Reports: as per HPI, nausea Neurological: Reports: as per HPI <Brandon Pinto - Last Filed: 09/03/23 21:03> ROS Statement: Those systems with pertinent positive or pertinent negative responses have been documented in the HPI. Past Medical History Past Medical History: Diabetes Mellitus, Hyperlipidemia, Sleep Apnea/CPAP/BIPAP, Thyroid Disorder Additional Past Medical History / Comment(s): Adrenal Insufficiency, frontal temporal dementia, cpap, celiac disease History of Any Multi-Drug Resistant Organisms: None Reported Past Surgical History: Appendectomy, Cholecystectomy, Orthopedic Surgery, Tonsillectomy, Uterine Ablation Additional Past Surgical History / Comment(s): L Femur, L ankle repair; Strabismus surgery; leaking aortic valve, colonoscopy Additional Past Anesthesia/Blood Transfusion Reaction / Comment(s): difficult to wake up. no blood transfusion Smoking Status: Never smoker - Past Family History Mother Family Medical History: No Reported History <Meyrl Frost - Last Filed: 09/03/23 18:17> General Exam <Meryl Frost - Last Filed: 03/26/24 18:17> Limitations: no limitations General appearance: in no apparent distress Head exam: Present: normocephalic Eye exam: Present: normal appearance, PERRL, EOMI ENT exam: Present: mucous membranes dry Neck exam: Present: normal inspection. Absent: meningismus Respiratory exam: Present: normal lung sounds bilaterally Cardiovascular Exam: Present: regular rate, normal rhythm GI/Abdominal exam: Present: soft. Absent: tenderness Extremities exam: Present: normal inspection Neurological exam: Present: CN II-XII intact, other (Drowsy but arousable to voice easily). Absent: motor sensory deficit Expanded Neurological exam: Present: protecting the airway Patient oriented to: Present: person, place. Absent: time Psychiatric exam: Present: flat affect Skin exam: Present: normal color <Brandon Pinto - Last Filed: 09/03/23 21:03> - General Exam Comments Initial Comments: Visual Physical Exam Vital signs reviewed General: Well-appearing, nontoxic, no acute distress. Head: Normocephalic, atraumatic Eyes: PERRLA, EOMI ENT: Airway patent Chest: Nonlabored breathing Skin: No visual rash, normal skin tone Neuro: Alert and oriented 3 Musculoskeletal: No gross abnormalities (Meryl Frost) Course Vital Signs 09/03/23 09/03/23 09/03/23 17:15 19:20 20:00 Temperature 98.2 F 101.1 F H Pulse Rate 87 82 84 Respiratory 16 18 18 Rate Blood Pressure 114/64 131/55 112/60 O2 Sat by Pulse 96 95 96 Oximetry Medical Decision Making - Lab Data Result diagrams: 09/03/23 17:25 09/03/23 17:25 <Meryl Frost - Last Filed: 09/03/23 18:17> - Lab Data Result diagrams: 09/03/23 17:25 09/03/23 17:25 <Brandon Pinto - Last Filed: 09/03/23 21:03> - Medical Decision Making Quick note preformed and electronically signed by Meryl Frost PA-C (Meryl Frost) Was pt. sent in by a medical professional or institution ([facility], PRODUCT MANAGEMENT INTERN, urgent care, hospital, or residential...) When possible be specific @ -No Did you speak to anyone other than the patient for history (EMS, parent, family, police, friend...)? What history was obtained from this source @ -Daughter is present helps provide history as patient is drowsy Did you review nursing and triage notes (agree or disagree)? Why? @ -I reviewed and agree with nursing and triage notes Were old charts reviewed (outside hosp., previous admission, EMS record, old EKG, old radiological studies, urgent care reports/EKG's, residential records)? Report findings @ -Previous x-ray reviewed Differential Diagnosis (chest pain, altered mental status, abdominal pain women, abdominal pain men, vaginal bleeding, weakness, fever, dyspnea, syncope, headache, dizziness, GI bleed, back pain, seizure, CVA, palpatations, mental health, musculoskeletal)? @ -Differential Altered Mental Status: Hypoglycemia, DKA, hypercapnia, ETOH, overdose, CO poisoning, trauma, myxedema coma, HTN encephalopathy, infection, encephalitis, psychosis, intercranial hemorrhage, hepatic encephalopathy, meningitis, CVA, this is not meant to be an all-inclusive list EKG interpreted by me (3pts min.). @ -As above X-rays interpreted by me (1pt min.). @ -Chest x-ray shows cardiomegaly CT interpreted by me (1pt min.). @ -None done U/S interpreted by me (1pt. min.). @ -None done What testing was considered but not performed or refused? (CT, X-rays, U/S, labs)? Why? @ -Viral testing was ordered What meds were considered but not given or refused? Why? @ -None Did you discuss the management of the patient with other professionals (christiana ballard i.e. , PA, PRODUCT MANAGEMENT INTERN, lab, RT, psych nurse, 7th grade social studies teacher, button maker and installer, teacher, chief informatics officer, residential case manager)? Give summary @ -Case was discussed with Dr. Gtz who will admit covering Dr. Godoy Was smoking cessation discussed for >3mins.? @ -No Was critical care preformed (if so, how long)? @ -No Were there social determinants of health that impacted care today? How? (Homelessness, low income, unemployed, alcoholism, drug addiction, transportation, low edu. Level, literacy, decrease access to med. care, [facility], rehab)? @ -No Was there de-escalation of care discussed even if they declined (Discuss DNR or withdrawal of care, Hospice)? DNR status @ -No What co-morbidities impacted this encounter? (DM, HTN, Smoking, COPD, CAD, Cancer, CVA, ARF, Chemo, Hep., AIDS, mental health diagnosis, sleep apnea, morbid obesity)? @ -History of adrenal insufficiency Was patient admitted / discharged? Hospital course, mention meds given and route, prescriptions, significant lab abnormalities, going to OR and other pertinent info. @ -Patient presents with drowsiness following procedure. Patient did vomit and unable to tolerate her steroid. Patient will be admitted for IV fluids and intravenous steroids. Patient did develop fever. No obvious signs of pneumonia or urinary tract infection. Viral panel pending. Patient will be admitted. Admission orders written. Undiagnosed new problem with uncertain prognosis? @ -No Drug Therapy requiring intensive monitoring for toxicity (Heparin, Nitro, Insulin, Cardizem)? @ -No Were any procedures done? @ -No Diagnosis/symptom? @ -Drowsiness, vomiting, fever Acute, or Chronic, or Acute on Chronic? @ -Acute, acute, acute Uncomplicated (without systemic symptoms) or Complicated (systemic symptoms)? @ -Default Side effects of treatment? @ -No Exacerbation, Progression, or Severe Exacerbation? @ -No Poses a threat to life or bodily function? How? (Chest pain, [place], PR, pneumonia, PE, COPD, DKA, ARF, appy, cholecystitis, CVA, Diverticulitis, Homicidal, Suicidal, threat to staff... and all critical care pts) @ -No (Brandon Pinto) - Lab Data Lab Results 09/03/23 09/03/23 09/03/23 Range/Units 17:24 17:25 17:25 WBC 8.0 (3.8-10.6) k/uL RBC 3.80 (3.80-5.40) m/uL Hgb 12.4 (11.4-16.0) gm/dL Hct 37.3 (34.0-46.0) % MCV 98.3 (80.0-100.0) fL MCH 32.7 (25.0-35.0) pg MCHC 33.3 (31.0-37.0) g/dL RDW 13.2 (11.5-15.5) % Plt Count 204 (150-450) k/uL MPV 9.2 Neutrophils % 87 % Lymphocytes % 6 % Monocytes % 4 % Eosinophils % 1 % Basophils % 1 % Neutrophils # 6.9 (1.3-7.7) k/uL Lymphocytes # 0.5 L (1.0-4.8) k/uL Monocytes # 0.3 (0-1.0) k/uL Eosinophils # 0.1 (0-0.7) k/uL Basophils # 0.0 (0-0.2) k/uL PT 11.3 (10.0-12.5) sec INR 1.0 (<1.2) APTT 23.6 (22.0-30.0) sec Sodium (137-145) mmol/L Potassium (3.5-5.1) mmol/L Chloride (98-107) mmol/L Carbon Dioxide (22-30) mmol/L Anion Gap mmol/L BUN (7-17) mg/dL Creatinine (0.52-1.04) mg/dL Est GFR (CKD-EPI)AfAm (>60 ml/min/1.73 sqM) Est GFR (CKD-EPI)NonAf (>60 ml/min/1.73 sqM) Glucose (74-99) mg/dL POC Glucose (mg/dL) 110 (70-110) mg/dL POC Glu Activities Officer ID September Calcium (8.4-10.2) mg/dL Total Bilirubin (0.2-1.3) mg/dL AST (14-36) U/L ALT (4-34) U/L Alkaline Phosphatase (38-126) U/L Total Protein (6.3-8.2) g/dL Albumin (3.5-5.0) g/dL Urine Color Urine Appearance (Clear) Urine pH (5.0-8.0) Ur Specific [place] (1.001-1.035) Urine Protein (Negative) Urine Glucose (UA) (Negative) Urine Ketones (Negative) Urine Blood (Negative) Urine Nitrite (Negative) Urine Bilirubin (Negative) Urine Urobilinogen (<2.0) mg/dL Ur Leukocyte Esterase (Negative) Urine RBC (0-5) /hpf Urine WBC (0-5) /hpf Urine Mucus (None) /hpf Influenza Type A (PCR) (Not Detectd) Influenza Type B (PCR) (Not Detectd) RSV (PCR) (Not Detectd) SARS-CoV-2 (PCR) (Not Detectd) 09/03/23 09/03/23 09/03/23 Range/Units 17:25 20:08 20:08 WBC (3.8-10.6) k/uL RBC (3.80-5.40) m/uL Hgb (11.4-16.0) gm/dL Hct (34.0-46.0) % MCV (80.0-100.0) fL MCH (25.0-35.0) pg MCHC (31.0-37.0) g/dL RDW (11.5-15.5) % Plt Count (150-450) k/uL MPV Neutrophils % % Lymphocytes % % Monocytes % % Eosinophils % % Basophils % % Neutrophils # (1.3-7.7) k/uL Lymphocytes # (1.0-4.8) k/uL Monocytes # (0-1.0) k/uL Eosinophils # (0-0.7) k/uL Basophils # (0-0.2) k/uL PT (10.0-12.5) sec INR (<1.2) APTT (22.0-30.0) sec Sodium 138 (137-145) mmol/L Potassium 3.5 (3.5-5.1) mmol/L Chloride 106 (98-107) mmol/L Carbon Dioxide 24 (22-30) mmol/L Anion Gap 8 mmol/L BUN 20 H (7-17) mg/dL Creatinine 0.88 (0.52-1.04) mg/dL Est GFR (CKD-EPI)AfAm 75 (>60 ml/min/1.73 sqM) Est GFR (CKD-EPI)NonAf 65 (>60 ml/min/1.73 sqM) Glucose 107 H (74-99) mg/dL POC Glucose (mg/dL) (70-110) mg/dL POC Glu Activities Officer ID Calcium 8.7 (8.4-10.2) mg/dL Total Bilirubin 0.6 (0.2-1.3) mg/dL AST 36 (14-36) U/L ALT 28 (4-34) U/L Alkaline Phosphatase 25 L (38-126) U/L Total Protein 5.6 L (6.3-8.2) g/dL Albumin 3.6 (3.5-5.0) g/dL Urine Color Yellow Urine Appearance Clear (Clear) Urine pH 6.5 (5.0-8.0) Ur Specific [place] 1.022 (1.001-1.035) Urine Protein 2+ H (Negative) Urine Glucose (UA) Negative (Negative) Urine Ketones Negative (Negative) Urine Blood Negative (Negative) Urine Nitrite Negative (Negative) Urine Bilirubin Negative (Negative) Urine Urobilinogen <2.0 (<2.0) mg/dL Ur Leukocyte Esterase Negative (Negative) Urine RBC <1 (0-5) /hpf Urine WBC 2 (0-5) /hpf Urine Mucus Rare H (None) /hpf Influenza Type A (PCR) Detected A (Not Detectd) Influenza Type B (PCR) Not Detected (Not Detectd) RSV (PCR) Not Detected (Not Detectd) SARS-CoV-2 (PCR) Not Detected (Not Detectd) Disposition <Meryl Frost - Last Filed: 09/03/23 18:17> Is patient prescribed a controlled substance at d/c from ED?: No Time of Disposition: 20:47 <Brandon Pinto - Last Filed: 09/03/23 21:03> Clinical Impression: Drowsiness, Fever, Vomiting, Influenza Disposition: ADMITTED IP TO THIS HOSP
[2023-09-03 17:26] LABS: Glucose,Whole Blood 110 mg/dL (70-110)
[2023-09-03 17:50] LABS: Basophils % (A) 1 %; Eosinophils # (A) 0.1 k/uL (0-0.7); Eosinophils % (A) 1 %; HCT 37.3 % (34.0-46.0); HGB 12.4 gm/dL (11.4-16.0); Lymphocytes # (A) 0.5 k/uL (1.0-4.8); Lymphocytes % (A) 6 %; MCH 32.7 pg (25.0-35.0); MCHC 33.3 g/dL (31.0-37.0); MCV 98.3 fL (80.0-100.0); Mean Platelet Volume 9.2; Monocytes # (A) 0.3 k/uL (0-1.0); Monocytes % (A) 4 %; Neutrophils # (A) 6.9 k/uL (1.3-7.7); Neutrophils % (A) 87 %; Platelet Count 204 k/uL (150-450); RDW 13.2 % (11.5-15.5)
[2023-09-03 18:04] LABS: ALT 28 U/L (4-34); AST 36 U/L (14-36); African American GFR (CKD) 75 (>60 ml/min/1.73 sqM); Albumin 3.6 g/dL (3.5-5.0); Alkaline Phosphatase 25 U/L (38-126); Anion Gap 8 mmol/L; Blood Urea Nitrogen 20 mg/dL (7-17); Calcium 8.7 mg/dL (8.4-10.2); Carbon Dioxide 24 mmol/L (22-30); Chloride 106 mmol/L (98-107); Glucose 107 mg/dL (74-99); Non-African American GFR(CKD) 65 (>60 ml/min/1.73 sqM); Potassium 3.5 mmol/L (3.5-5.1); Sodium 138 mmol/L (137-145); Total Bilirubin 0.6 mg/dL (0.2-1.3); Total Protein 5.6 g/dL (6.3-8.2)
[2023-09-03 18:10] LABS: Partial Thromboplastin Time 23.6 sec (22.0-30.0); Prothrombin Time 11.3 sec (10.0-12.5)
[2023-09-03] MEDS: HYDROCORTISONE SUCCINATE 100 MG/2 ML VIAL IV SCH (19:35)
[2023-09-03] MEDS: SODIUM CHLORIDE 0.9% 1,000 ML IV STA (19:38)
[2023-09-03] MEDS: ACETAMINOPHEN TAB 500 MG TAB PO STA (20:03)
[2023-09-03 20:29] LABS: Appearance,Urine Clear (Clear); Bilirubin,Urine Negative (Negative); Blood,Urine Negative (Negative); Color,Urine Yellow; Glucose,Urine (UA) Negative (Negative); Ketones,Urine Negative (Negative); Leukocyte Esterase,Urine Negative (Negative); Mucus,Urine Rare /hpf; Nitrite,Urine Negative (Negative); PH, Urine 6.5 (5.0-8.0); Protein,Urine 2+ (Negative); RBC,Urine <1 /hpf (0-5); Specific Gravity,Urine 1.022 (1.001-1.035); Urobilinogen,Urine <2.0 mg/dL (<2.0); WBC,Urine 2 /hpf (0-5)
[2023-09-03] MEDS ORDERED: NALOXONE 0.4 MG/ML 1 ML VIAL IV PRN (20:48)
[2023-09-03] MEDS ORDERED: ONDANSETRON 4 MG/2 ML VIAL IVP PRN (20:48)
[2023-09-03] MEDS ORDERED: IBUPROFEN 400 MG TAB PO PRN (20:48)
[2023-09-03] MEDS ORDERED: ACETAMINOPHEN TAB 325 MG TAB PO PRN (20:48)
--- NOTE | 2023-09-03 20:50 | XR ---
EXAMINATION TYPE: XR chest 2V DATE OF EXAM: 09/03/2023 8:29 PM CLINICAL INDICATION:Female, 73 years old with history of fever; COMPARISON: Chest radiographs from 02/26/2021 TECHNIQUE: XR chest 2V Frontal and lateral views of the chest. FINDINGS: Lungs/Pleura: There is no evidence of pleural effusion, focal consolidation, or pneumothorax. Pulmonary vascularity: Pulmonary vascular congestion. Heart/mediastinum: Cardiomediastinal silhouette is enlarged and stable. Musculoskeletal: No acute osseous pathology. IMPRESSION: Diffuse haziness of lungs correlate which could represent atelectasis from low lung volumes versus at ypical pneumonia versus pulmonary vascular congestion in the setting of congestive heart failure.
[2023-09-03] MEDS: SODIUM CHLORIDE 0.9% 1,000 ML IV SCH (21:04)
[2023-09-03] MEDS: FAMOTIDINE 20 MG TAB PO SCH (21:04)
[2023-09-03] MEDS: OSELTAMIVIR 30 MG CAP PO SCH (21:38)
--- NOTE | 2023-09-03 22:46 | P.HPIM ---
History of Present Illness H&P Date: 09/03/23 Patient is a 73-year-old female with a PMH of Frank's disease, celiac disease, hyperlipidemia, hypothyroidism, type II DM who presents to the emergency room with complaints of lethargy. The patient underwent a scheduled colonoscopy earlier today due to history of polyps, which was tolerated well. The patient was discharged home unremarkable with soon after developed lethargy, nausea, and hypotension. The history was supplemented by the patient's daughter at the bedside. Daughter states that the patient also missed her morning dose of steroids. Reports not having had an episode of addisonian crisis for the past several decades. Patient also reports a cough ever since her procedure. Denied experiencing chest discomfort, shortness of breath, abdominal pain, diarrhea. Chest x-ray in the emergency room revealed diffuse haziness, possibly secondary to atypical pneumonia versus pulmonary edema. Laboratory evaluation was remarkable for influenza type a positive, WBC count 8.0, lactic acid 0.6, with an unremarkable UA. The patient also had a Tmax of 101.1 F in the emergency room with SpO2 93% on room air. ED documentation reviewed and case discussed with ED provider. Review of systems: Pertinent positives and negatives as discussed in HPI, a complete review of systems was performed and all other systems are negative. Physical examination: Vital signs reviewed General: non toxic, no distress, appears at stated age, normal weight Derm: no unusual rashes/lesions, warm Head: atraumatic, normocephalic, symmetric Eyes: EOMI, no lid lag, anicteric sclera, pupils equal round reactive to light ENT: Nose and ears atraumatic Neck: No cervical lymphadenopathy, trachea midline, supple Mouth: no lip lesion, mucus membranes moist Cardiovascular: S1S2 reg, grade 4 systolic murmur appreciated, positive dorsalis pedis pulse bilateral, no edema Lungs: CTA bilateral, no rhonchi, no rales, no accessory muscle use Abdominal: soft, nontender to palpation, no guarding Ext: muscle strength 4 out of 5 in all 4 extremities grossly, no gross muscle atrophy, no contractures, Neuro: CN II-XI grossly intact, no gross focal neuro deficits Psych: Lethargic, oriented to person and place, not oriented to time Assessment: Influenza type A infection Addisonian crisis Chronic conditions: Type II DM, hypothyroidism, hyperlipidemia, celiac's disease Imaging: Chest x-ray in the emergency room revealed diffuse haziness, possibly secondary to atypical pneumonia versus pulmonary edema. Data Review: Laboratory evaluation was remarkable for influenza type a positive, WBC count 8.0, lactic acid 0.6, with an unremarkable UA. The patient also had a Tmax of 101.1 F in the emergency room with SpO2 93% on room air. Plan: Continue with Tamiflu 75 mg p.o. twice daily x 5 days Continue patient on hydrocortisone 50 mg every 6 hourly IV C/w IVFs NS 130 ml/hr Supplemental oxygen Insulin sliding scale and blood glucose monitoring Resume home medications Gluten free diet DVT prophylaxis: Lovenox subcu The patient is admitted with an anticipated less than 2 midnight stay for evaluation of influenza infection CODE STATUS: Full Code Discussed with: Patient Anticipated discharge place: Home Past Medical History Past Medical History: Diabetes Mellitus, Hyperlipidemia, Sleep Apnea/CPAP/BIPAP, Thyroid Disorder Additional Past Medical History / Comment(s): Adrenal Insufficiency, frontal temporal dementia, cpap, celiac disease History of Any Multi-Drug Resistant Organisms: None Reported Past Surgical History: Appendectomy, Cholecystectomy, Orthopedic Surgery, Tons illectomy, Uterine Ablation Additional Past Surgical History / Comment(s): L Femur, L ankle repair; Strabismus surgery; leaking aortic valve, colonoscopy Additional Past Anesthesia/Blood Transfusion Reaction / Comment(s): difficult to wake up. no blood transfusion Smoking Status: Never smoker - Past Family History Mother Family Medical History: No Reported History Medications and Allergies Home Medications Medication Instructions Recorded Confirmed Type Fenofibrate 160 mg PO HS 02/28/18 09/03/23 History Fludrocortisone Acetate 0.05 mg PO SUTUTHSA 02/28/18 09/03/23 History Fludrocortisone Acetate 0.1 mg PO MOWEFR 02/28/18 09/03/23 History metFORMIN HCL [Glucophage] 500 mg PO BID 02/28/18 09/03/23 History predniSONE 5 mg PO DAILY 02/28/18 09/03/23 History Atorvastatin [Lipitor] 20 mg PO HS 02/26/21 09/03/23 History Citalopram Hydrobromide [CeleXA] 40 mg PO HS 02/26/21 09/03/23 History buPROPion XL [Wellbutrin XL] 150 mg PO DAILY 02/26/21 09/03/23 History Aspirin [[place] Aspirin EC] 81 mg PO DAILY 08/30/23 09/03/23 History Cholecalciferol [Vitamin D3 (25 50 mcg PO DAILY 08/30/23 09/03/23 History Mcg = 1000 Iu)] Folic Acid 1.6 mg PO DAILY 08/30/23 09/03/23 History L.acidoph,Paracasei, B.lactis 1 tab PO HS 08/30/23 09/03/23 History [Probiotic] Levocetirizine Dihydrochloride 5 mg PO DAILY 08/30/23 09/03/23 History [Xyzal] Memantine [Namenda] 10 mg PO BID 08/30/23 09/03/23 History cycloSPORINE 0.05% OPHTH SOLN 1 applicator BOTH EYES Q12H 08/30/23 09/03/23 History [Restasis] Cyanocobalamin (Vitamin B-12) 3,000 mcg PO DAILY 09/03/23 09/03/23 History [Vitamin B-12] Levothyroxine Sodium [Synthroid] 150 mcg PO HS 09/03/23 09/03/23 History Allergies Allergy/AdvReac Type Severity Reaction Status Date / Time morphine Allergy Itching Verified 09/03/23 21:21 Physical Exam Vitals: Vital Signs Temp Pulse Resp BP Pulse Ox 09/03/23 21:37 80 18 110/47 93 L 09/03/23 21:00 100.5 F H 83 18 111/49 94 L 09/03/23 20:00 84 18 112/60 96 09/03/23 19:20 101.1 F H 82 18 131/55 95 09/03/23 17:15 98.2 F 87 16 114/64 96 Intake and Output 09/03/23 09/03/23 09/03/23 06:59 14:59 22:59 Other: Weight 79.379 kg Results CBC & Chem 7: 09/03/23 17:25 09/03/23 17:25 Labs: Abnormal Lab Results - Last 24 Hours (Table) 09/03/23 09/03/23 09/03/23 Range/Units 17:25 17:25 20:08 Lymphocytes # 0.5 L (1.0-4.8) k/uL BUN 20 H (7-17) mg/dL Glucose 107 H (74-99) mg/dL Plasma Lactic Acid Bert (0.7-2.0) mmol/L Alkaline Phosphatase 25 L (38-126) U/L Total Protein 5.6 L (6.3-8.2) g/dL Urine Protein 2+ H (Negative) Urine Mucus Rare H (None) /hpf Influenza Type A (PCR) (Not Detectd) 09/03/23 09/03/23 Range/Units 20:08 20:24 Lymphocytes # (1.0-4.8) k/uL BUN (7-17) mg/dL Glucose (74-99) mg/dL Plasma Lactic Acid Bert 0.6 L (0.7-2.0) mmol/L Alkaline Phosphatase (38-126) U/L Total Protein (6.3-8.2) g/dL Urine Protein (Negative) Urine Mucus (None) /hpf Influenza Type A (PCR) Detected A (Not Detectd)
[2023-09-03] MEDS: cycloSPORINE 0.05% OPHTH 0.4 ML DROPERETTE BOTH EYES SCH (23:34)
[2023-09-03 23:39] LABS: Glucose,Whole Blood 112 mg/dL (70-110)
[2023-09-04 05:41] LABS: Glucose,Whole Blood 89 mg/dL (70-110)
[2023-09-04] MEDS: INSULIN ASPART (NovoLOG) 100 UNIT/ML VIAL SQ SCH (05:42)
[2023-09-04 08:25] VITALS: BP 110/63; PULSE 83; RESP 17; TEMP 98.9
[2023-09-04] MEDS: ENOXAPARIN 40 MG/0.4 ML SYRINGE SQ SCH (08:36)
[2023-09-04] MEDS: OSELTAMIVIR 75 MG CAP PO SCH (08:36)
[2023-09-04] MEDS: MEMANTINE 10 MG TAB PO SCH (08:36)
[2023-09-04] MEDS: CYANOCOBALAMIN 500 MCG TAB PO SCH (08:36)
[2023-09-04] MEDS: buPROPion XL 150 MG TAB.ER.24H PO SCH (08:36)
[2023-09-04] MEDS: ASPIRIN 81 MG PO SCH (08:36)
[2023-09-04 09:12] LABS: Basophils # (A) 0.1 k/uL (0-0.2); Basophils % (A) 1 %; Eosinophils # (A) 0.1 k/uL (0-0.7); Eosinophils % (A) 1 %; HCT 35.5 % (34.0-46.0); HGB 11.4 gm/dL (11.4-16.0); Lymphocytes # (A) 0.4 k/uL (1.0-4.8); Lymphocytes % (A) 7 %; MCH 32.3 pg (25.0-35.0); MCHC 32.1 g/dL (31.0-37.0); MCV 100.6 fL (80.0-100.0); Mean Platelet Volume 9.8; Monocytes # (A) 0.3 k/uL (0-1.0); Monocytes % (A) 4 %; Neutrophils # (A) 5.2 k/uL (1.3-7.7); Neutrophils % (A) 86 %; Platelet Count 153 k/uL (150-450); RBC 3.53 m/uL (3.80-5.40); RDW 13.6 % (11.5-15.5); WBC 6.1 k/uL (3.8-10.6)
[2023-09-04 09:20] LABS: ALT 40 U/L (4-34); AST 59 U/L (14-36); African American GFR (CKD) >90 (>60 ml/min/1.73 sqM); Albumin/Globulin Ratio 1.5; Alkaline Phosphatase 23 U/L (38-126); Anion Gap 7 mmol/L; Blood Urea Nitrogen 19 mg/dL (7-17); Calcium 7.6 mg/dL (8.4-10.2); Carbon Dioxide 18 mmol/L (22-30); Chloride 111 mmol/L (98-107); Glucose 130 mg/dL (74-99); Magnesium 1.4 mg/dL (1.6-2.3); Non-African American GFR(CKD) >90 (>60 ml/min/1.73 sqM); Potassium 3.6 mmol/L (3.5-5.1); Sodium 136 mmol/L (137-145); Total Bilirubin 0.6 mg/dL (0.2-1.3)
[2023-09-04] MEDS: MAGNESIUM SULFATE-D5W PMX 1 GM in DEXTROSE/WATER 1 100ML.BAG IVPB SCH (10:23)
--- NOTE | 2023-09-04 11:29 | P.DS ---
Providers Date of admission: 09/03/23 20:49 Expected date of discharge: 09/04/23 Attending physician: Luisana Gtz MD Primary care physician: Georges Hernández [facility] Course: Discharge Diagnosis: Influenza A infection Suspected addisonian crisis Hypomagnesemia Celiac's disease Type 2 diabetes Hypothyroidism Hyperlipidemia Hospital Course: Patient is a 73-year-old female with a PMH of [place]'s disease, celiac disease, hyperlipidemia, hypothyroidism, type II DM who presents to the emergency room with complaints of lethargy. Chest x-ray in the emergency room revealed diffuse haziness, possibly secondary to atypical pneumonia versus pulmonary edema. Laboratory evaluation was remarkable for influenza type a positive, WBC count 8.0, lactic acid 0.6, with an unremarkable UA. The patient also had a Tmax of 101.1 F in the emergency room with SpO2 93% on room air. Started on Tamiflu. Was also started on hydrocortisone IV. Blood pressure has been stable. Patient asymptomatic at the time of discharge. Okay to continue current dose of oral steroids at home. She will follow-up with her it infrastructure manager in the next upcoming weeks. Patient seen and examined at bedside. Vital signs reviewed and stable. General: Nontoxic, no distress, appears at stated age Derm: Warm, dry Head: Atraumatic, normocephalic, symmetric Eyes: EOMI, no lid lag, anicteric sclera Mouth: No lip lesion, mucus membranes moist Cardiovascular: S1S2 reg, systolic murmur Lungs: CTA bilateral, no rhonchi, no rales, no accessory muscle use Abdominal: Soft, nontender to palpation, no guarding, no appreciable organomegaly Ext: No gross muscle atrophy, no edema, no contractures Neuro: CN II-XI grossly intact, no focal neuro deficits Psych: Alert, oriented, appropriate affect A total of 33 minutes of time were spent preparing this complex discharge summary. Patient was discharged on 09/04/2023 at 1105. Patient Condition at Discharge: Stable Plan - Discharge Summary Discharge Rx Participant: No New Discharge Prescriptions: New Oseltamivir [Tamiflu] 75 mg PO Q12HR #9 cap Continue predniSONE 5 mg PO DAILY metFORMIN HCL [Glucophage] 500 mg PO BID Fenofibrate 160 mg PO HS Fludrocortisone Acetate 0.1 mg PO MOWEFR Fludrocortisone Acetate 0.05 mg PO SUTUTHSA Citalopram Hydrobromide [CeleXA] 40 mg PO HS Atorvastatin [Lipitor] 20 mg PO HS cycloSPORINE 0.05% OPHTH SOLN [Restasis] 1 applicator BOTH EYES Q12H L.acidoph,Paracasei, B.lactis [Probiotic] 1 tab PO HS Folic Acid 1.6 mg PO DAILY Cholecalciferol [Vitamin D3 (25 Mcg = 1000 Iu)] 50 mcg PO DAILY Aspirin [[place] Aspirin EC] 81 mg PO DAILY Levothyroxine Sodium [Synthroid] 150 mcg PO HS buPROPion XL [Wellbutrin XL] 150 mg PO DAILY Memantine [Namenda] 10 mg PO BID Levocetirizine Dihydrochloride [Xyzal] 5 mg PO DAILY Cyanocobalamin (Vitamin B-12) [Vitamin B-12] 3,000 mcg PO DAILY Discharge Medication List Fenofibrate 160 mg PO HS 02/28/18 [History] Fludrocortisone Acetate 0.05 mg PO SUTUTHSA 02/28/18 [History] Fludrocortisone Acetate 0.1 mg PO MOWEFR 02/28/18 [History] metFORMIN HCL [Glucophage] 500 mg PO BID 02/28/18 [History] predniSONE 5 mg PO DAILY 02/28/18 [History] Atorvastatin [Lipitor] 20 mg PO HS 02/26/21 [History] Citalopram Hydrobromide [CeleXA] 40 mg PO HS 02/26/21 [History] buPROPion XL [Wellbutrin XL] 150 mg PO DAILY 02/26/21 [History] Aspirin [[place] Aspirin EC] 81 mg PO DAILY 08/30/23 [History] Cholecalciferol [Vitamin D3 (25 Mcg = 1000 Iu)] 50 mcg PO DAILY 08/30/23 [History] Folic Acid 1.6 mg PO DAILY 08/30/23 [History] L.acidoph,Paracasei, B.lactis [Probiotic] 1 tab PO HS 08/30/23 [History] Levocetirizine Dihydrochloride [Xyzal] 5 mg PO DAILY 08/30/23 [History] Memantine [Namenda] 10 mg PO BID 08/30/23 [History] cycloSPORINE 0.05% OPHTH SOLN [Restasis] 1 applicator BOTH EYES Q12H 08/30/23 [History] Cyanocobalamin (Vitamin B-12) [Vitamin B-12] 3,000 mcg PO DAILY 09/03/23 [History] Levothyroxine Sodium [Synthroid] 150 mcg PO HS 09/03/23 [History] Oseltamivir [Tamiflu] 75 mg PO Q12HR #9 cap 09/04/23 [Rx] Follow up Appointment(s)/Referral(s): Georges Godoy MD [Primary Care Provider] - 1-2 days Patient Instructions/Handouts: Influenza (DC) Activity/Diet/Wound Care/Special Instructions: Please see your PCP and it infrastructure manager. Discharge Disposition: HOME SELF-CARE
[2023-09-04 11:57] LABS: Glucose,Whole Blood 135 mg/dL (70-110)
[2023-09-04] MEDS ORDERED: CITALOPRAM HYDROBROMIDE 20 MG TAB PO SCH (21:00)
[2023-09-04] MEDS ORDERED: ATORVASTATIN 20 MG TAB PO SCH (21:00)
[2023-09-04] MEDS ORDERED: FENOFIBRATE 160 MG TAB PO SCH (21:00)
[2023-09-04] MEDS ORDERED: LEVOTHYROXINE 75 MCG TAB PO SCH (21:00)
== END 2023-09-04 14:14 | disposition home or self-care (01) ==
LOC: EC 16:56 → 4SSUR 20:49
PROVIDERS: ADMIT Internal Medicine; ATTEND Internal Medicine
DX: J10.1 Influenza due to other identified influenza virus with other respiratory manifestations (principal); E27.2 Addisonian crisis; E78.5 Hyperlipidemia, unspecified; E83.42 Hypomagnesemia; K90.0 Celiac disease; E11.9 Type 2 diabetes mellitus without complications; E03.9 Hypothyroidism, unspecified
CPT/HCPCS: 96376; 96365; 96366; 96372 ×2; 96361; 96375; 99285; 36415; 93005; 80053 ×2; 82533; 83605; 83735; 85025 ×2; 85610; 85730; 81001; 87040; 87636; 71046; G0378 ×2; J1720 ×2; J1650; J3475

== ENCOUNTER 2023-09-05 23:03 | Inpatient (IN) | payer MEDICARE ==
[2023-09-05] MEDS: ACETAMINOPHEN TAB 500 MG TAB PO STA (23:56)
[2023-09-05] MEDS: DEXTROSE 5%-0.9% NACL 1,000 ML IV SCH (23:56)
[2023-09-05] MEDS: IPRATROPIUM-ALBUTEROL 3 ML NEB INHALATION STA (23:57)
[2023-09-05] MEDS: methylPREDNISolone SOD SUCCI 125 MG/2 ML VIAL IV STA (23:58)
[2023-09-06] MEDS: HYDROCORTISONE SUCCINATE 100 MG/2 ML VIAL IV STA (00:10)
[2023-09-06 00:27] LABS: Basophils % (A) 1 %; Eosinophils # (A) 0.1 k/uL (0-0.7); Eosinophils % (A) 1 %; HCT 35.1 % (34.0-46.0); HGB 11.5 gm/dL (11.4-16.0); Lymphocytes # (A) 1.2 k/uL (1.0-4.8); Lymphocytes % (A) 22 %; MCH 32.3 pg (25.0-35.0); MCHC 32.8 g/dL (31.0-37.0); MCV 98.5 fL (80.0-100.0); Mean Platelet Volume 9.7; Monocytes # (A) 0.3 k/uL (0-1.0); Monocytes % (A) 5 %; Neutrophils # (A) 3.7 k/uL (1.3-7.7); Neutrophils % (A) 70 %; Platelet Count 161 k/uL (150-450); RBC 3.56 m/uL (3.80-5.40); RDW 13.1 % (11.5-15.5); WBC 5.3 k/uL (3.8-10.6)
[2023-09-06 00:34] LABS: VBG PH 7.38 (7.31-7.41)
[2023-09-06 00:38] LABS: ALT 32 U/L (4-34); AST 45 U/L (14-36); African American GFR (CKD) >90 (>60 ml/min/1.73 sqM); Albumin 3.2 g/dL (3.5-5.0); Alkaline Phosphatase <20 U/L (38-126); Anion Gap 5 mmol/L; Blood Urea Nitrogen 11 mg/dL (7-17); Calcium 7.9 mg/dL (8.4-10.2); Carbon Dioxide 25 mmol/L (22-30); Chloride 106 mmol/L (98-107); Glucose 91 mg/dL (74-99); Magnesium 1.4 mg/dL (1.6-2.3); Non-African American GFR(CKD) >90 (>60 ml/min/1.73 sqM); Potassium 3.1 mmol/L (3.5-5.1); Sodium 136 mmol/L (137-145); Total Bilirubin 0.7 mg/dL (0.2-1.3); Total Protein 5.4 g/dL (6.3-8.2)
[2023-09-06 00:46] LABS: NT-Pro-B-Type Natriuretic Pept 9390 pg/mL
[2023-09-06 00:53] LABS: Partial Thromboplastin Time 25.3 sec (22.0-30.0); Prothrombin Time 10.5 sec (10.0-12.5)
[2023-09-06] MEDS ORDERED: Magnesium Replacement Protocol 1 EACH MISC MISCELLANE PRN (01:05)
[2023-09-06] MEDS ORDERED: Potassium Replacement Protocol 1 EACH MISC MISCELLANE PRN (01:05)
[2023-09-06] MEDS: IPRATROPIUM-ALBUTEROL 3 ML NEB INHALATION STA ×2 (01:24→04:22)
--- NOTE | 2023-09-06 01:34 | ED ---
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 Patient brought in via EMS. Patient is quite confused. She was seen in the ER on 09/02 for lethargy in the evening after a colonoscopy in the morning. Patient was admitted. She was diagnosed with influenza A and started on Tamiflu and was also treated with hydrocortisone for her adrenal insufficiency. She was discharged on 09/03. No family at bedside to provide supplemental history. She denies chest pain. Patient is out of breath while trying to answer my questions. (Francesco Camara) - Related Data Home Medications Medication Instructions Recorded Confirmed Fenofibrate 160 mg PO HS 02/28/18 09/06/23 Fludrocortisone Acetate 0.05 mg PO SUTUTHSA 02/28/18 09/06/23 Fludrocortisone Acetate 0.1 mg PO MOWEFR 02/28/18 09/06/23 metFORMIN HCL [Glucophage] 500 mg PO BID 02/28/18 09/06/23 predniSONE 5 mg PO DAILY 02/28/18 09/06/23 Atorvastatin [Lipitor] 20 mg PO HS 02/26/21 09/06/23 Citalopram Hydrobromide [CeleXA] 40 mg PO HS 02/26/21 09/06/23 buPROPion XL [Wellbutrin XL] 150 mg PO DAILY 02/26/21 09/06/23 Aspirin [[place] Aspirin EC] 81 mg PO DAILY 08/30/23 09/06/23 Cholecalciferol [Vitamin D3 (25 50 mcg PO DAILY 08/30/23 09/06/23 Mcg = 1000 Iu)] Folic Acid 1.6 mg PO DAILY 08/30/23 09/06/23 L.acidoph,Paracasei, B.lactis 1 tab PO HS 08/30/23 09/06/23 [Probiotic] Levocetirizine Dihydrochloride 5 mg PO DAILY 08/30/23 09/06/23 [Xyzal] Memantine [Namenda] 10 mg PO BID 08/30/23 09/06/23 cycloSPORINE 0.05% OPHTH SOLN 1 applicator BOTH EYES Q12H 08/30/23 09/06/23 [Restasis] Cyanocobalamin (Vitamin B-12) 3,000 mcg PO DAILY 09/03/23 09/06/23 [Vitamin B-12] Levothyroxine Sodium [Synthroid] 150 mcg PO HS 09/03/23 09/06/23 Previous Rx's Medication Instructions Recorded Oseltamivir [Tamiflu] 75 mg PO Q12HR #9 cap 09/04/23 Allergies Allergy/AdvReac Type Severity Reaction Status Date / Time morphine Allergy Itching Verified 09/06/23 06:52 Review of Systems ROS Other: All systems not noted in ROS Statement are negative. <Francesco Camara - Last Filed: 09/06/23 03:54> ROS Other: All systems not noted in ROS Statement are negative. <Antonia Castillo - Last Filed: 09/08/23 05:22> ROS Statement: Those systems with pertinent positive or pertinent negative responses have been documented in the HPI. Past Medical History Past Medical History: Diabetes Mellitus, Hyperlipidemia, Sleep Apnea/CPAP/BIPAP, Thyroid Disorder Additional Past Medical History / Comment(s): Adrenal Insufficiency, frontal temporal dementia, cpap, celiac disease History of Any Multi-Drug Resistant Organisms: None Reported Past Surgical History: Appendectomy, Cholecystectomy, Orthopedic Surgery, Tonsillectomy, Uterine Ablation Additional Past Surgical History / Comment(s): L Femur, L ankle repair; Strabismus surgery; leaking aortic valve, colonoscopy Additional Past Anesthesia/Blood Transfusion Reaction / Comment(s): difficult to wake up. no blood transfusion Past Psychological History: Depression Smoking Status: Never smoker - Past Family History Mother Family Medical History: No Reported History <Francesco Camara - Last Filed: 09/06/23 03:54> General Exam Limitations: altered mental status General appearance: lethargic Head exam: Present: atraumatic, normocephalic Eye exam: Present: normal appearance Neck exam: Present: normal inspection Respiratory exam: Present: respiratory distress, wheezes. Absent: rales, rhonchi Cardiovascular Exam: Present: regular rate, normal rhythm, normal heart sounds. Absent: systolic murmur, diastolic murmur, rubs, gallop, clicks Neurological exam: Present: altered Skin exam: Present: warm, dry <Francesco Camara - Last Filed: 09/06/23 03:54> Course Vital Signs 09/05/23 09/06/23 09/06/23 23:04 00:00 00:08 Temperature 100.1 F H Pulse Rate 82 82 80 Respiratory 24 Rate Blood Pressure 178/75 O2 Sat by Pulse 94 L Oximetry 09/06/23 09/06/23 09/06/23 00:10 01:10 01:24 Temperature Pulse Rate 83 78 80 Respiratory 24 24 Rate Blood Pressure 187/78 119/61 O2 Sat by Pulse 95 95 Oximetry 09/06/23 09/06/23 09/06/23 01:37 02:00 04:02 Temperature 97.4 F L Pulse Rate 82 78 71 Respiratory 22 22 Rate Blood Pressure 150/69 167/68 O2 Sat by Pulse 96 97 Oximetry 09/06/23 09/06/23 09/06/23 04:22 04:32 06:27 Temperature Pulse Rate 69 68 75 Respiratory 22 Rate Blood Pressure 170/80 O2 Sat by Pulse 98 Oximetry 09/06/23 09/06/23 09/06/23 07:46 08:28 08:39 Temperature Pulse Rate 62 72 74 Respiratory 22 16 16 Rate Blood Pressure 138/63 O2 Sat by Pulse 96 98 Oximetry 09/06/23 09/06/23 09/06/23 09:00 10:00 11:00 Temperature Pulse Rate 75 71 63 Respiratory 20 19 18 Rate Blood Pressure 149/61 161/74 161/74 O2 Sat by Pulse 72 L 97 96 Oximetry 09/06/23 09/06/23 09/06/23 11:46 11:57 12:00 Temperature Pulse Rate 69 60 67 Respiratory 18 18 18 Rate Blood Pressure 149/63 O2 Sat by Pulse 97 Oximetry 09/06/23 09/06/23 09/06/23 14:27 15:12 15:14 Temperature Pulse Rate 63 60 62 Respiratory 22 20 18 Rate Blood Pressure 169/56 148/65 O2 Sat by Pulse 97 98 Oximetry 09/06/23 09/06/23 15:24 15:46 Temperature 97.9 F Pulse Rate 66 73 Respiratory 18 18 Rate Blood Pressure 147/67 O2 Sat by Pulse 97 Oximetry Procedures - [place] Protocol (Time Out) Nurse: Ines Art <Francesco Camara - Last Filed: 09/06/23 03:54> Medical Decision Making - Lab Data Result diagrams: 09/05/23 23:55 09/05/23 23:55 <Francesco Camara - Last Filed: 09/06/23 03:54> - Lab Data Result diagrams: 09/06/23 08:34 09/06/23 08:34 <Antonia Castillo - Last Filed: 09/08/23 05:22> - Medical Decision Making EKG shows sinus rhythm ventricular rate 80. NC interval 145. QRS 105. QT 293. QTc 328. 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 Patient was recently admitted on November 02 and discharged on the for lethargy, she tested positive for influenza and was started on Tamiflu. Today the patient presents febrile and hypoxic. She is started on 2 L via nasal cannula. She is given Tylenol for fever. She is confused while obtaining the history and states that she is too tired to talk to me. Lab work shows no leukocytosis or anemia. VBG is WNL. Potassium 3.1, replacement is ordered. Magnesium 1.4, replacement is ordered. Calcium 7.9, corrected calcium is 8.5. Chest x-ray shows trace bilateral pleural effusions with pulmonary vascular congestion. Chest x-ray appears worsened from image 2 days ago. The patient has a BNP of 9390 and a troponin of 0.471. EKG shows no acute changes. Patient is treated with Lasix and Tamiflu. She is also given Rocephin 1 g and azithromycin 500 mg due to concern for coexisting pneumonia. I spoke with the admitting physician Dr. Gtz, who requested that the patient be started on heparin for her elevated troponin. Heparin was initiated. Patient has been given hydrocortisone and 2 DuoNeb treatments. On reassessment she is more alert and while she is still wheezing her lung sounds are somewhat improved. Patient will be admitted. She is agreeable with this plan. I discussed this case with my attending Dr. Castillo Was pt. sent in by a medical professional or institution (Dr., PA, DECAL APPLIER, urgent care, hospital, or intermediate...) When possible be specific @ -No Did you speak to anyone other than the patient for history (EMS, parent, family, police, friend...)? What history was obtained from this source @ -No Did you review nursing and triage notes (agree or disagree)? Why? @ -I reviewed and agree with nursing and triage notes Were old charts reviewed (outside hosp., previous admission, EMS record, old EKG, old radiological studies, urgent care reports/EKG's, intermediate records)? Report findings @ -Most recent admission is reviewed. Most recent chest x-ray is reviewed Differential Diagnosis (chest pain, altered mental status, abdominal pain women, abdominal pain men, vaginal bleeding, weakness, fever, dyspnea, syncope, headache, dizziness, GI bleed, back pain, seizure, CVA, palpatations, mental health, musculoskeletal)? @ -MDM Differential Dyspnea: Coronary syndrome, arrhythmia, tamponade, asthma, COPD, pulmonary embolism, pneumonia, pneumothorax, pulmonary effusion, anaphylaxis, diabetic ketoacidosis, flailed chest, pulmonary contusion, diaphragmatic rupture, anemia, neurom uscular this is not meant to be an all-inclusive list. EKG interpreted by me (3pts min.). @ -EKG shows sinus rhythm ventricular rate 80. NC interval 145. QRS 105. QT 293. QTc 328. X-rays interpreted by me (1pt min.). @ -Chest x-ray shows trace bilateral pleural effusions. Pulmonary vascular congestion. CT interpreted by me (1pt min.). @ -None done U/S interpreted by me (1pt. min.). @ -None done What testing was considered but not performed or refused? (CT, X-rays, U/S, labs)? Why? @ -None What meds were considered but not given or refused? Why? @ -None Did you discuss the management of the patient with other professionals (professionals i.e. TEO Sneed, DECAL APPLIER, lab, RT, psych nurse, social media designer, insurance verification representative, teacher, family preservation officer, director case management)? Give summary @ -Spoke with Dr. Gtz who accepted admission. I also spoke with him regarding the patient's elevated troponin and the decision of whether to heparinize or not given her evidence of CHF. He requested that the patient be heparinized, heparin was initiated. Was smoking cessation discussed for >3mins.? @ -No Was critical care preformed (if so, how long)? @ -No Were there social determinants of health that impacted care today? How? (Homelessness, low income, unemployed, alcoholism, drug addiction, transportation, low edu. Level, literacy, decrease access to med. care, alf, rehab)? @ -No Was there de-escalation of care discussed even if they declined (Discuss DNR or withdrawal of care, Hospice)? DNR status @ -No What co-morbidities impacted this encounter? (DM, HTN, Smoking, COPD, CAD, Cancer, CVA, ARF, Chemo, Hep., AIDS, mental health diagnosis, sleep apnea, morbid obesity)? @ -Mayaguez's disease Was patient admitted / discharged? Hospital course, mention meds given and route, prescriptions, significant lab abnormalities, going to OR and other pertinent info. @ -Admitted, see above for details Undiagnosed new problem with uncertain prognosis? @ -No Drug Therapy requiring intensive monitoring for toxicity (Heparin, Nitro, Insulin, Cardizem)? @ -Heparin Were any procedures done? @ -No Diagnosis/symptom? @ -Hypoxia, influenza, CHF, elevated troponin Acute, or Chronic, or Acute on Chronic? @ -Acute Uncomplicated (without systemic symptoms) or Complicated (systemic symptoms)? @ -Complicated Side effects of treatment? @ -No Exacerbation, Progression, or Severe Exacerbation? @ -No Poses a threat to life or bodily function? How? (Chest pain, [place], AR, pneumonia, PE, COPD, DKA, ARF, appy, cholecystitis, CVA, Diverticulitis, Homicidal, Suicidal, threat to staff... and all critical care pts) @ -Yes (Francesco Camara) - Lab Data Lab Results 09/05/23 09/05/23 09/05/23 Range/Units 00:21 23:55 23:55 WBC 5.3 (3.8-10.6) k/uL RBC 3.56 L (3.80-5.40) m/uL Hgb 11.5 (11.4-16.0) gm/dL Hct 35.1 (34.0-46.0) % MCV 98.5 (80.0-100.0) fL MCH 32.3 (25.0-35.0) pg MCHC 32.8 (31.0-37.0) g/dL RDW 13.1 (11.5-15.5) % Plt Count 161 (150-450) k/uL MPV 9.7 Neutrophils % 70 % Lymphocytes % 22 % Monocytes % 5 % Eosinophils % 1 % Basophils % 1 % Neutrophils # 3.7 (1.3-7.7) k/uL Lymphocytes # 1.2 (1.0-4.8) k/uL Monocytes # 0.3 (0-1.0) k/uL Eosinophils # 0.1 (0-0.7) k/uL Basophils # 0.0 (0-0.2) k/uL PT 10.5 (10.0-12.5) sec INR 1.0 (<1.2) APTT 25.3 (22.0-30.0) sec VBG pH 7.38 (7.31-7.41) VBG pCO2 45 (37-51) mmHg VBG HCO3 26 (24-28) mmol/L Sodium (137-145) mmol/L Potassium (3.5-5.1) mmol/L Chloride (98-107) mmol/L Carbon Dioxide (22-30) mmol/L Anion Gap mmol/L BUN (7-17) mg/dL Creatinine (0.52-1.04) mg/dL Est GFR (CKD-EPI)AfAm (>60 ml/min/1.73 sqM) Est GFR (CKD-EPI)NonAf (>60 ml/min/1.73 sqM) Glucose (74-99) mg/dL Plasma Lactic Acid Bert (0.7-2.0) mmol/L Calcium (8.4-10.2) mg/dL Magnesium (1.6-2.3) mg/dL Total Bilirubin (0.2-1.3) mg/dL AST (14-36) U/L ALT (4-34) U/L Alkaline Phosphatase (38-126) U/L Troponin I (0.000-0.034) ng/mL NT-Pro-B Natriuret Pep pg/mL Total Protein (6.3-8.2) g/dL Albumin (3.5-5.0) g/dL Cortisol (3.1-22.4) UG/DL ACTH (0.00-45.99) pg/mL 09/05/23 09/05/23 09/05/23 Range/Units 23:55 23:55 23:55 WBC (3.8-10.6) k/uL RBC (3.80-5.40) m/uL Hgb (11.4-16.0) gm/dL Hct (34.0-46.0) % MCV (80.0-100.0) fL MCH (25.0-35.0) pg MCHC (31.0-37.0) g/dL RDW (11.5-15.5) % Plt Count (150-450) k/uL MPV Neutrophils % % Lymphocytes % % Monocytes % % Eosinophils % % Basophils % % Neutrophils # (1.3-7.7) k/uL Lymphocytes # (1.0-4.8) k/uL Monocytes # (0-1.0) k/uL Eosinophils # (0-0.7) k/uL Basophils # (0-0.2) k/uL PT (10.0-12.5) sec INR (<1.2) APTT (22.0-30.0) sec VBG pH (7.31-7.41) VBG pCO2 (37-51) mmHg VBG HCO3 (24-28) mmol/L Sodium 136 L (137-145) mmol/L Potassium 3.1 L (3.5-5.1) mmol/L Chloride 106 (98-107) mmol/L Carbon Dioxide 25 (22-30) mmol/L Anion Gap 5 mmol/L BUN 11 (7-17) mg/dL Creatinine 0.55 (0.52-1.04) mg/dL Est GFR (CKD-EPI)AfAm >90 (>60 ml/min/1.73 sqM) Est GFR (CKD-EPI)NonAf >90 (>60 ml/min/1.73 sqM) Glucose 91 (74-99) mg/dL Plasma Lactic Acid Bert 1.7 (0.7-2.0) mmol/L Calcium 7.9 L (8.4-10.2) mg/dL Magnesium 1.4 L (1.6-2.3) mg/dL Total Bilirubin 0.7 (0.2-1.3) mg/dL AST 45 H (14-36) U/L ALT 32 (4-34) U/L Alkaline Phosphatase <20 L (38-126) U/L Troponin I 0.471 H* (0.000-0.034) ng/mL NT-Pro-B Natriuret Pep 9390 pg/mL Total Protein 5.4 L (6.3-8.2) g/dL Albumin 3.2 L (3.5-5.0) g/dL Cortisol <1.5 L (3.1-22.4) UG/DL ACTH (0.00-45.99) pg/mL 09/05/23 Range/Units 23:55 WBC (3.8-10.6) k/uL RBC (3.80-5.40) m/uL Hgb (11.4-16.0) gm/dL Hct (34.0-46.0) % MCV (80.0-100.0) fL MCH (25.0-35.0) pg MCHC (31.0-37.0) g/dL RDW (11.5-15.5) % Plt Count (150-450) k/uL MPV Neutrophils % % Lymphocytes % % Monocytes % % Eosinophils % % Basophils % % Neutrophils # (1.3-7.7) k/uL Lymphocytes # (1.0-4.8) k/uL Monocytes # (0-1.0) k/uL Eosinophils # (0-0.7) k/uL Basophils # (0-0.2) k/uL PT (10.0-12.5) sec INR (<1.2) APTT (22.0-30.0) sec VBG pH (7.31-7.41) VBG pCO2 (37-51) mmHg VBG HCO3 (24-28) mmol/L Sodium (137-145) mmol/L Potassium (3.5-5.1) mmol/L Chloride (98-107) mmol/L Carbon Dioxide (22-30) mmol/L Anion Gap mmol/L BUN (7-17) mg/dL Creatinine (0.52-1.04) mg/dL Est GFR (CKD-EPI)AfAm (>60 ml/min/1.73 sqM) Est GFR (CKD-EPI)NonAf (>60 ml/min/1.73 sqM) Glucose (74-99) mg/dL Plasma Lactic Acid Bert (0.7-2.0) mmol/L Calcium (8.4-10.2) mg/dL Magnesium (1.6-2.3) mg/dL Total Bilirubin (0.2-1.3) mg/dL AST (14-36) U/L ALT (4-34) U/L Alkaline Phosphatase (38-126) U/L Troponin I (0.000-0.034) ng/mL NT-Pro-B Natriuret Pep pg/mL Total Protein (6.3-8.2) g/dL Albumin (3.5-5.0) g/dL Cortisol (3.1-22.4) UG/DL ACTH 1566.00 H (0.00-45.99) pg/mL Disposition Time of Disposition: 03:08 <Francesco Camara - Last Filed: 09/06/23 03:54> <Antonia Castillo - Last Filed: 09/08/23 05:22> Clinical Impression: Influenza, Hypoxia, CHF (congestive heart failure), Elevated troponin, Addisons disease Disposition: ADMITTED IP TO THIS HOSP Condition: Serious
--- NOTE | 2023-09-06 01:59 | XR ---
EXAM: XR Chest, 2 Views CLINICAL HISTORY: ITS.REASON XR Reason: difficulty breathing TECHNIQUE: Frontal and lateral views of the chest. COMPARISON: No relevant prior studies available. FINDINGS: Lungs: See below. Pleural space: Trace bilateral pleural effusions. Pulmonary vascular congestion. No pneumothorax. Heart: Cardiomegaly. Mediastinum: Unremarkable. Normal mediastinal contour. Bones/joints: Unremarkable. No acute fracture. IMPRESSION: Trace bilateral pleural effusions. Pulmonary vascular congestion.
[2023-09-06] MEDS: cefTRIAXone IN SWFI 1,000 MG/10 ML SYRINGE IVP STA (02:00)
[2023-09-06] MEDS: MAGNESIUM SULFATE-D5W PMX 1 GM in DEXTROSE/WATER 1 100ML.BAG IVPB SCH (02:03)
[2023-09-06] MEDS: POTASSIUM CHLORIDE 10 MEQ in WATER FOR INJECTION 1 100ML.BAG IVPB SCH ×2 (02:11→12:19)
[2023-09-06] MEDS ORDERED: HEPARIN SODIUM 1,000 UN/ML (10ML VL) IV PRN (03:04)
[2023-09-06] MEDS ORDERED: NALOXONE 0.4 MG/ML 1 ML VIAL IV PRN (03:05)
[2023-09-06] MEDS ORDERED: ACETAMINOPHEN TAB 325 MG TAB PO PRN (03:05)
[2023-09-06] MEDS ORDERED: IBUPROFEN 400 MG TAB PO PRN (03:05)
[2023-09-06] MEDS ORDERED: IPRATROPIUM-ALBUTEROL 3 ML NEB INHALATION PRN (03:07)
[2023-09-06] MEDS: FUROSEMIDE 10 MG/ML 4 ML VIAL IV STA (03:44)
[2023-09-06] MEDS: HEPARIN SODIUM 1,000 UN/ML (10ML VL) IV ONE (03:55)
[2023-09-06] MEDS: HEPARIN SOD,PORK IN 0.45% NACL 25,000 UNIT in 0.45% NACL 1 250ML.BAG IV SCH (03:59)
--- NOTE | 2023-09-06 04:27 | P.HPIM ---
History of Present Illness H&P Date: 09/06/23 Patient is a 73-year-old female with a PMH of Frank's disease, celiac disease, type II DM, hypertension, hyperlipidemia, recent influenza type a infection who presents to the emergency room with complaints of shortness of breath. The history was limited as the patient was confused at the time of interview. She does report exertional dyspnea but denies any additional complaints. She denied experiencing chest discomfort, nausea, vomiting, abdominal pain, lower extremity swelling, lower extremity pain. Chest x-ray in the emergency room revealed pulmonary vascular congestion with EKG showing sinus rhythm at 80 bpm with diffuse T wave flattening as reviewed by me. Laboratory evaluation was remarkable for troponin 0.471, proBNP 9390, sodium 136, potassium 3.1, and magnesium 1.4. ED documentation reviewed and case discussed with ED provider. Review of systems: Pertinent positives and negatives as discussed in HPI, a complete review of systems was performed and all other systems are negative. Physical examination: Vital signs reviewed General: non toxic, no distress, appears at stated age, normal weight Derm: no unusual rashes/lesions, warm Head: atraumatic, normocephalic, symmetric Eyes: EOMI, no lid lag, anicteric sclera, pupils equal round reactive to light ENT: Nose and ears atraumatic Neck: No cervical lymphadenopathy, trachea midline, supple Mouth: no lip lesion, mucus membranes moist Cardiovascular: S1S2 reg, no murmur, positive dorsalis pedis pulse bilateral, no edema Lungs: Bilateral rales appreciated with some expiratory wheezing, no accessory muscle use Abdominal: soft, nontender to palpation, no guarding Ext: muscle strength 5 out of 5 in all 4 extremities grossly, no gross muscle atrophy, no contractures, Neuro: CN II-XI grossly intact, no gross focal neuro deficits Psych: Somewhat lethargic, oriented to person and partially to place, not oriented to time Assessment: Fluid overload, suspect newly diagnosed CHF exacerbation Non-ST elevation KS Altered mental status, likely toxic metabolic encephalopathy in setting of acute illness Hypokalemia and hypomagnesemia Chronic conditions: Frank's disease, celiac disease, type II DM, hypertension, hyperlipidemia Imaging: Chest x-ray in the emergency room revealed pulmonary vascular congestion with EKG showing sinus rhythm at 80 bpm with diffuse T wave flattening as reviewed by me. Data Review: Laboratory evaluation was remarkable for troponin 0.471, proBNP 9390, sodium 136, potassium 3.1, and magnesium 1.4. Plan: Continue Lasix 40 mg IV push every 12 hourly Intake and output Daily weights Echocardiogram Monitor electrolytes daily Cardiology consulted Cardiac monitoring Check procalcitonin levels Replace electrolytes Follow-up blood cultures Continue with home medications once reconciled DVT prophylaxis: Heparin infusion The patient is admitted with an anticipated greater than 2 midnight stay for evaluation of shortness of breath CODE STATUS: Full Code Discussed with: Patient Anticipated discharge place: Home Past Medical History Past Medical History: Diabetes Mellitus, Hyperlipidemia, Sleep Apnea/CPAP/BIPAP, Thyroid Disorder Additional Past Medical History / Comment(s): Adrenal Insufficiency, frontal temporal dementia, cpap, celiac disease History of Any Multi-Drug Resistant Organisms: None Reported Past Surgical History: Appendectomy, Cholecystectomy, Orthopedic Surgery, Tonsillectomy, Uterine Ablation Additional Past Surgical History / Comment(s): L Femur, L ankle repair; Strabismus surgery; leaking aortic valve, colonoscopy Additional Past Anesthesia/Blood Transfusion Reaction / Comment(s): difficult to wake up. no blood transfusion Past Psychological History: Depression Smoking Status: Never smoker - Past Family History Mother Family Medical History: Hypertension Medications and Allergies Home Medications Medication Instructions Recorded Confirmed Type Fenofibrate 160 mg PO HS 02/28/18 09/03/23 History Fludrocortisone Acetate 0.05 mg PO SUTUTHSA 02/28/18 09/03/23 History Fludrocortisone Acetate 0.1 mg PO MOWEFR 02/28/18 09/03/23 History metFORMIN HCL [Glucophage] 500 mg PO BID 02/28/18 09/03/23 History predniSONE 5 mg PO DAILY 02/28/18 09/03/23 History Atorvastatin [Lipitor] 20 mg PO HS 02/26/21 09/03/23 History Citalopram Hydrobromide [CeleXA] 40 mg PO HS 02/26/21 09/03/23 History buPROPion XL [Wellbutrin XL] 150 mg PO DAILY 02/26/21 09/03/23 History Aspirin [Octavia Aspirin EC] 81 mg PO DAILY 08/30/23 09/03/23 History Cholecalciferol [Vitamin D3 (25 50 mcg PO DAILY 08/30/23 09/03/23 History Mcg = 1000 Iu)] Folic Acid 1.6 mg PO DAILY 08/30/23 09/03/23 History L.acidoph,Paracasei, B.lactis 1 tab PO HS 08/30/23 09/03/23 History [Probiotic] Levocetirizine Dihydrochloride 5 mg PO DAILY 08/30/23 09/03/23 History [Xyzal] Memantine [Namenda] 10 mg PO BID 08/30/23 09/03/23 History cycloSPORINE 0.05% OPHTH SOLN 1 applicator BOTH EYES Q12H 08/30/23 09/03/23 History [Restasis] Cyanocobalamin (Vitamin B-12) 3,000 mcg PO DAILY 09/03/23 09/03/23 History [Vitamin B-12] Levothyroxine Sodium [Synthroid] 150 mcg PO HS 09/03/23 09/03/23 History Oseltamivir [Tamiflu] 75 mg PO Q12HR #9 cap 09/04/23 Rx Allergies Allergy/AdvReac Type Severity Reaction Status Date / Time morphine Allergy Itching Verified 09/05/23 23:10 Physical Exam Vitals: Vital Signs Temp Pulse Resp BP Pulse Ox 09/06/23 04:22 69 09/06/23 04:02 71 22 167/68 97 09/06/23 02:00 97.4 F L 78 22 150/69 96 09/06/23 01:37 82 09/06/23 01:24 80 09/06/23 01:10 78 24 119/61 95 09/06/23 00:10 83 24 187/78 95 09/06/23 00:08 80 09/06/23 00:00 82 09/05/23 23:04 100.1 F H 82 24 178/75 94 L Intake and Output 09/05/23 09/05/23 09/06/23 14:59 22:59 06:59 Other: Weight 77.111 kg Results CBC & Chem 7: 09/05/23 23:55 09/05/23 23:55 Labs: Abnormal Lab Results - Last 24 Hours (Table) 09/05/23 09/05/23 09/05/23 Range/Units 23:55 23:55 23:55 RBC 3.56 L (3.80-5.40) m/uL Sodium 136 L (137-145) mmol/L Potassium 3.1 L (3.5-5.1) mmol/L Calcium 7.9 L (8.4-10.2) mg/dL Magnesium 1.4 L (1.6-2.3) mg/dL AST 45 H (14-36) U/L Alkaline Phosphatase <20 L (38-126) U/L Troponin I 0.471 H* (0.000-0.034) ng/mL Total Protein 5.4 L (6.3-8.2) g/dL Albumin 3.2 L (3.5-5.0) g/dL
[2023-09-06] MEDS: AZITHROMYCIN 500 MG in SODIUM CHLORIDE 0.9% 250 ML IVPB STA (04:34)
[2023-09-06] MEDS: ATORVASTATIN 80 MG TAB PO STA (06:53)
[2023-09-06] MEDS ORDERED: DEXTROSE 50% SYRINGE 50 ML IVP PRN ×2 (08:02)
[2023-09-06] MEDS: IPRATROPIUM-ALBUTEROL 3 ML NEB INHALATION SCH (08:26)
[2023-09-06] MEDS: ASPIRIN 81 MG PO SCH (09:24)
[2023-09-06] MEDS: FUROSEMIDE 10 MG/ML 4 ML VIAL IV SCH (09:24)
[2023-09-06] MEDS: OSELTAMIVIR 75 MG CAP PO SCH (10:12)
[2023-09-06] MEDS: buPROPion XL 150 MG TAB.ER.24H PO SCH (10:13)
[2023-09-06] MEDS: FLUDROCORTISONE 0.1 MG TAB PO SCH ×2 (10:13→10:16)
[2023-09-06] MEDS: MEMANTINE 10 MG TAB PO SCH (10:14)
[2023-09-06 11:09] LABS: Basophils % (A) 0 %; Eosinophils % (A) 0 %; HCT 36.2 % (34.0-46.0); HGB 11.4 gm/dL (11.4-16.0); Lymphocytes # (A) 0.7 k/uL (1.0-4.8); Lymphocytes % (A) 14 %; MCH 31.4 pg (25.0-35.0); MCHC 31.6 g/dL (31.0-37.0); MCV 99.4 fL (80.0-100.0); Mean Platelet Volume 9.8; Monocytes # (A) 0.2 k/uL (0-1.0); Monocytes % (A) 4 %; Neutrophils # (A) 4.2 k/uL (1.3-7.7); Neutrophils % (A) 80 %; Platelet Count 187 k/uL (150-450); RBC 3.64 m/uL (3.80-5.40); RDW 13.2 % (11.5-15.5); WBC 5.2 k/uL (3.8-10.6)
[2023-09-06] MEDS: predniSONE 5 MG TAB PO SCH (11:26)
[2023-09-06 11:27] LABS: ALT 31 U/L (4-34); AST 35 U/L (14-36); African American GFR (CKD) >90 (>60 ml/min/1.73 sqM); Albumin 3.5 g/dL (3.5-5.0); Alkaline Phosphatase 29 U/L (38-126); Anion Gap 7 mmol/L; Blood Urea Nitrogen 9 mg/dL (7-17); Calcium 8.1 mg/dL (8.4-10.2); Carbon Dioxide 27 mmol/L (22-30); Chloride 109 mmol/L (98-107); Glucose 127 mg/dL (74-99); Magnesium 1.8 mg/dL (1.6-2.3); Non-African American GFR(CKD) >90 (>60 ml/min/1.73 sqM); Sodium 143 mmol/L (137-145); Total Bilirubin 0.4 mg/dL (0.2-1.3); Total Protein 5.7 g/dL (6.3-8.2)
--- NOTE | 2023-09-06 11:58 | CA ---
Transthoracic Echo Report Name: Tracie Kee Age: 73 Gender: F : 1950 Exam Date: 09/06/2023 08:03 Exam Location: [place] Echo Ht (in): 62 Wt (lb): 170 Ordering Physician: Luisana Gtz MD Attending/Referring Phys: Electrical Panel Builder Geean Choudhury RDCS Procedure CPT: Indications: fluid overload Cardiac Hx: Technical Quality: Fair Contrast 1: Total Dose (mL): Contrast 2: Total Dose (mL): MEASUREMENTS (Male / Female) Normal Values 2D ECHO LV Diastolic Diameter PLAX 4.4 cm 4.2 - 5.9 / 3.9 - 5.3 cm LV Systolic Diameter PLAX 2.8 cm IVS Diastolic Thickness 1.3 cm 0.6 - 1.0 / 0.6 - 0.9 cm LVPW Diastolic Thickness 1.2 cm 0.6 - 1.0 / 0.6 - 0.9 cm LV Relative Wall Thickness 0.6 RV Internal Dim ED PLAX 3.1 cm LA Systolic Diameter LX 3.5 cm 3.0 - 4.0 / 2.7 - 3.8 cm LV Diastolic Volume MOD BP 90.7 cm??? 67 - 155 / 56 - 104 cm??? LV Systolic Volume MOD BP 24.1 cm??? 22 - 58 / 19 - 49 cm??? LV Ejection Fraction MOD BP 73.4 % >= 55 % LV Cardiac Index MOD BP 2390.9 cm???/min???m??? LV Diastolic Volume MOD 4C 85.2 cm??? LV Systolic Volume MOD 4C 25.8 cm??? LV Ejection Fraction MOD 4C 69.8 % LV Cardiac Index MOD 4C 2133.6 cm???/min???m??? LV Diastolic Length 4C 8.7 cm LV Systolic Length 4C 6.9 cm LV Diastolic Volume MOD 2C 96.3 cm??? LV Systolic Volume MOD 2C 23.1 cm??? LV Ejection Fraction MOD 2C 76.0 % LV Cardiac Index MOD 2C 2628.3 cm???/min???m??? LV Diastolic Length 2C 8.8 cm LV Systolic Length 2C 6.1 cm LA Volume 66.5 cm??? 18 - 58 / 22 - 52 cm??? LA Volume Index 35.7 cm???/m??? 16 - 28 cm???/m??? M-MODE Aortic Root Diameter MM 3.0 cm DOPPLER AV Peak Velocity 530.5 cm/s AV Peak Gradient 112.6 mmHg AV Mean Velocity 377.6 cm/s AV Mean Gradient 64.9 mmHg AV Velocity Time Integral 132.8 cm AI Peak Velocity 339.5 cm/s AI Peak Gradient 46.1 mmHg AI Pressure Half Time 724.6 ms LVOT Peak Velocity 119.8 cm/s LVOT Peak Gradient 5.7 mmHg MV Peak Velocity 153.2 cm/s MV Peak Gradient 9.4 mmHg MV Mean Velocity 84.9 cm/s MV Mean Gradient 3.5 mmHg MV Velocity Time Integral 45.4 cm MV Area PHT 1.9 cm??? Mitral E Point Velocity 129.9 cm/s Mitral A Point Velocity 156.2 cm/s Mitral E to A Ratio 0.8 MV Deceleration Time 393.1 ms TR Peak Velocity 285.9 cm/s TR Peak Gradient 32.7 mmHg Right Ventricular Systolic Press 36.5 mmHg FINDINGS Left Ventricle Left ventricular ejection fraction is estimated at 65 %. Moderately increased septal wall thickness. Mildly increased posterior wall thickness. Left ventricular cavity size normal. Hyperdynamic left ventricular systolic function. Right Ventricle Normal right ventricular size. Mild pulmonary hypertension. Right Atrium Normal right atrial size. Left Atrium Moderately increased left atrial volume. Mildly increased left atrial area. Mitral Valve Mitral valve thickened. Mild mitral annular calcification. Mild mitral regurgitation. Minimal mitral stenosis. Aortic Valve Trileaflet aortic valve. Moderate aortic valve sclerosis. Severe aortic stenosis with a peak velocity of 5.3 m/s, peak gradient 113 mmHg, mean gradient 65 mmHg. Mild aortic regurgitation. Tricuspid Valve Structurally normal tricuspid valve. Mild tricuspid regurgitation. Pulmonic Valve Pulmonic valve not well visualized. Pericardium No pericardial effusion. Aorta Normal size aortic root and proximal ascending aorta. CONCLUSIONS Left ventricular ejection fraction is estimated at 65 %. Moderate septal wall hypertrophy Increased flow tubulence in LVOT Mean aortic gradient estimated at 65 mmHg. LVOT pressure gradients were not aqurately aquired. May need BRENDA or a repeat TTE to evaluate if has true aortic stenosis or has component of dynamic LVOT obstruction Previewed by: Dr Miguel Dejesus (Electronically Signed) Final Date: 06 September 2023 11:57
[2023-09-06 12:07] LABS: Glucose,Whole Blood 120 mg/dL (70-110)
[2023-09-06] MEDS: POTASSIUM CHLORIDE ER 20 MEQ TAB.ER PO STA (12:11)
--- NOTE | 2023-09-06 12:17 | P.CRDCN ---
History of Present Illness Consult date: 09/06/23 Consult reason: congestive heart failure (Elevated troponin) History of present illness: History of present illness: This is a 73-year-old female with past medical history of hypertension, dyslipidemia, family history of premature coronary artery disease, chronic dyspnea on exertion, nonrheumatic aortic stenosis moderate to severe, palpitations, hyperlipidemia, diabetes mellitus type 2, frontotemporal dementia, Frank's disease followed by Dr. Bejarano. We have been asked to evaluate the patient for CHF and elevated troponins. Patient normally follows with Dr. Damon for her cardiac care. Daughter gives history that patient had a colon oscopy on Saturday with Dr. Charlette Walton. No abnormal concerns at that time. She was discharged home by 4:30 in the afternoon but she was quite groggy at the time. Due to continued fatigue following colonoscopy, patient was brought into the emergency center and was admitted to the hospital overnight. She was found to have influenza A. Her magnesium was low at 1.4, potassium 3.6 and were replaced and patient was discharged home. Family was with the patient until about 9 PM and they went home. EMS was called during the night by the neighbor as there was concerns about dyspnea and patient was brought into the emergency center for further evaluation. Patient is status post IV Cortef, IV magnesium replacement, IV potassium replacement, IV antibiotics and nebulizer treatments and IV heparin. Patient currently denies having any shortness of breath and denies chest pain. elevated. EKG sinus rhythm with nonspecific ST-T changes Chest x-ray: Trace bilateral pleural effusions. Pulmonary vascular congestion. Echocardiogram reveals EF of 65%, moderate septal wall hypertrophy. Increased flow turbulence in LVOT. Mean aortic gradient estimated at 65 mmHg. WBC 5.2, hemoglobin 9.4, platelet count 187. INR 1. Sodium 143, potassium 3, chloride 109, CO2 27, BUN 9 creatinine 0.59. Blood sugar 127. Troponins 0.471 and 0.355. Liver function tests are within normal limits. Magnesium initially 1.4 followed by 1.8. Cortisol level was less than 1.5. Home cardiac medications: Aspirin 81 mg daily, atorvastatin 40 mg at bedtime, patient is also on Florinef. Information obtained from Dr. Damon's office: Patient was last seen in the office on July 09, 2023. Most recent echocardiogram performed on 12/14/2020 revealed EF of 60%, mild to moderate MR, mild TR, mild AR, moderate to severe . Patient had a cardiac catheterization 04/12/2014 which revealed no intervention. Stress test MPI performed 12/04/2022 revealed EF of 67%. No ischemia. Review Of Systems: At the time of my exam: CONSTITUTIONAL: Denies fever or chills. HEENT: Denies blurred vision, vision changes, or eye pain. Denies hemoptysis CARDIOVASCULAR: Denies chest pain. Denies orthopnea. Denies PND. Denies palpitations RESPIRATORY: Denies shortness of breath. GASTROINTESTINAL: Denies abdominal pain. Denies nausea or vomiting. HEMATOLOGIC: Denies bleeding disorders. GENITOURINARY: Denies any blood in urine. SKIN: Denies pruitis. Denies rash. Physical examination: Gen: This is a 73-year-old female in no acute distress VS: reviewed HEENT: Head is atraumatic, normocephalic. Pupils equal, round. Sclerae is an icteric. NECK: Supple. No JVD. LUNGS: Clear to auscultation. No wheezes or rhonchi. No intercostal retractions. HEART: Regular rate and rhythm. Systolic murmur. ABDOMEN: Soft No tenderness. EXTREMITIES: No pedal edema. No calf tenderness. NEUROLOGICAL: Patient is awake, alert. Assessment: Non-ST elevated myocardial infarction Influenza A [place]'s disease Recent colonoscopy, screening Hypertension Hyperlipidemia Moderate to severe Plan: Resume patient's home cardiac medications Continue heparin drip Continue influenza treatment Monitor electrolytes and replace as indicated Continue atorvastatin, aspirin 81 mg daily Patient/daughter requesting transfer to [facility] to be under the care of Dr. Damon. Discussed this with attending to make arrangements. Further recommendations to follow based upon clinical course Thank you kindly for this consultation. Nurse practitioner note has been reviewed, I agree with documented findings and plan of care. Patient was seen and examined. Past Medical History Past Medical History: Diabetes Mellitus, Hyperlipidemia, Sleep Apnea/CPAP/BIPAP, Thyroid Disorder Additional Past Medical History / Comment(s): Adrenal Insufficiency, frontal temporal dementia, cpap, celiac disease History of Any Multi-Drug Resistant Organisms: None Reported Past Surgical History: Appendectomy, Cholecystectomy, Orthopedic Surgery, Ton sillectomy, Uterine Ablation Additional Past Surgical History / Comment(s): L Femur, L ankle repair; Strabismus surgery; leaking aortic valve, colonoscopy Additional Past Anesthesia/Blood Transfusion Reaction / Comment(s): difficult to wake up. no blood transfusion Past Psychological History: Depression Smoking Status: Never smoker - Past Family History Mother Family Medical History: Hypertension Medications and Allergies Home Medications Medication Instructions Recorded Confirmed Type Fenofibrate 160 mg PO HS 02/28/18 09/06/23 History Fludrocortisone Acetate 0.05 mg PO SUTUTHSA 02/28/18 09/06/23 History Fludrocortisone Acetate 0.1 mg PO MOWEFR 02/28/18 09/06/23 History metFORMIN HCL [Glucophage] 500 mg PO BID 02/28/18 09/06/23 History predniSONE 5 mg PO DAILY 02/28/18 09/06/23 History Atorvastatin [Lipitor] 20 mg PO HS 02/26/21 09/06/23 History Citalopram Hydrobromide [CeleXA] 40 mg PO HS 02/26/21 09/06/23 History buPROPion XL [Wellbutrin XL] 150 mg PO DAILY 02/26/21 09/06/23 History Aspirin [Cambria Aspirin EC] 81 mg PO DAILY 08/30/23 09/06/23 History Cholecalciferol [Vitamin D3 (25 50 mcg PO DAILY 08/30/23 09/06/23 History Mcg = 1000 Iu)] Folic Acid 1.6 mg PO DAILY 08/30/23 09/06/23 History L.acidoph,Paracasei, B.lactis 1 tab PO HS 08/30/23 09/06/23 History [Probiotic] Levocetirizine Dihydrochloride 5 mg PO DAILY 08/30/23 09/06/23 History [Xyzal] Memantine [Namenda] 10 mg PO BID 08/30/23 09/06/23 History cycloSPORINE 0.05% OPHTH SOLN 1 applicator BOTH EYES Q12H 08/30/23 09/06/23 History [Restasis] Cyanocobalamin (Vitamin B-12) 3,000 mcg PO DAILY 09/03/23 09/06/23 History [Vitamin B-12] Levothyroxine Sodium [Synthroid] 150 mcg PO HS 09/03/23 09/06/23 History Oseltamivir [Tamiflu] 75 mg PO Q12HR #9 cap 09/04/23 09/06/23 Rx Allergies Allergy/AdvReac Type Severity Reaction Status Date / Time morphine Allergy Itching Verified 09/06/23 06:52 Physical Exam Vitals: Vital Signs Temp Pulse Resp BP Pulse Ox 09/06/23 08:39 74 16 09/06/23 08:28 72 16 98 09/06/23 07:46 62 22 138/63 96 09/06/23 06:27 75 22 170/80 98 09/06/23 04:32 68 09/06/23 04:22 69 09/06/23 04:02 71 22 167/68 97 09/06/23 02:00 97.4 F L 78 22 150/69 96 09/06/23 01:37 82 09/06/23 01:24 80 09/06/23 01:10 78 24 119/61 95 09/06/23 00:10 83 24 187/78 95 09/06/23 00:08 80 09/06/23 00:00 82 09/05/23 23:04 100.1 F H 82 24 178/75 94 L Intake and Output 09/05/23 09/06/23 09/06/23 22:59 06:59 14:59 Other: Weight 77.111 kg Results 09/06/23 08:34 09/06/23 08:34 Cardiac Enzymes 09/05/23 09/05/23 Range/Units 23:55 23:55 AST 45 H (14-36) U/L Troponin I 0.471 H* (0.000-0.034) ng/mL Coagulation 09/05/23 Range/Units 23:55 PT 10.5 (10.0-12.5) sec APTT 25.3 (22.0-30.0) sec CBC 09/05/23 Range/Units 23:55 WBC 5.3 (3.8-10.6) k/uL RBC 3.56 L (3.80-5.40) m/uL Hgb 11.5 (11.4-16.0) gm/dL Hct 35.1 (34.0-46.0) % Plt Count 161 (150-450) k/uL Comprehensive Metabolic Panel 09/05/23 Range/Units 23:55 Sodium 136 L (137-145) mmol/L Potassium 3.1 L (3.5-5.1) mmol/L Chloride 106 (98-107) mmol/L Carbon Dioxide 25 (22-30) mmol/L BUN 11 (7-17) mg/dL Creatinine 0.55 (0.52-1.04) mg/dL Glucose 91 (74-99) mg/dL Calcium 7.9 L (8.4-10.2) mg/dL AST 45 H (14-36) U/L ALT 32 (4-34) U/L Alkaline Phosphatase <20 L (38-126) U/L Total Protein 5.4 L (6.3-8.2) g/dL Albumin 3.2 L (3.5-5.0) g/dL Current Medications Generic Name Dose Route Start Last Admin Trade Name Freq PRN Reason Stop Dose Admin Acetaminophen 650 mg 09/06/23 03:05 Acetaminophen Tab 325 Mg Tab PO Q6HR PRN Mild Pain or Fever > 100.5 Albuterol/Ipratropium 3 ml 09/06/23 03:07 Ipratropium-Albuterol 3 Ml Neb INHALATION RT-Q2H PRN Shortness Of Breath Or Wheezing Albuterol/Ipratropium 3 ml 09/06/23 08:00 09/06/23 08:26 Ipratropium-Albuterol 3 Ml Neb INHALATION 3 ml RT-QID VALENCIA Administration Aspirin 81 mg 09/06/23 09:00 Aspirin 81 Mg PO DAILY [facility] Atorvastatin Calcium 80 mg 09/06/23 21:00 Atorvastatin 80 Mg Tab PO HS [facility] Bupropion HCl 150 mg 09/06/23 09:00 Bupropion Xl 150 Mg Tab.Er.24h PO DAILY [facility] Dextrose/Water 25 ml 09/06/23 08:02 Dextrose 50% Syringe 50 Ml IVP PER PROTOCOL PRN Hypoglycemia Protocol Dextrose/Water 50 ml 09/06/23 08:02 Dextrose 50% Syringe 50 Ml IVP PER PROTOCOL PRN Hypoglycemia Protocol Fludrocortisone Acetate 0.05 mg 09/07/23 09:00 Fludrocortisone 0.1 Mg Tab PO [id number] [facility] Fludrocortisone Acetate 0.1 mg 09/06/23 09:00 Fludrocortisone 0.1 Mg Tab PO [email or web address] [facility] Furosemide 40 mg 09/06/23 09:00 Furosemide 10 Mg/Ml 4 Ml Vial IV Q12HR [facility] Heparin Sodium (Porcine) 0 unit 09/06/23 03:04 Heparin Sodium 1,000 Un/Ml (10ml Vl) IV PER PROTOCOL PRN Low PTT Protocol Heparin Sodium/Sodium Chloride 250 mls @ 9.253 mls/hr 09/06/23 03:15 09/06/23 03:59 25,000 unit/ Sodium Chloride IV 12 units/kg/hr .Q24H VALENCIA 9.253 mls/hr Administration Protocol 12 UNITS/KG/HR Ibuprofen 400 mg 09/06/23 03:05 Ibuprofen 400 Mg Tab PO Q6HR PRN Mild Pain or Fever > 100.5 Insulin Aspart 0 unit 09/06/23 12:30 Insulin Aspart (Novolog) 100 Unit/Ml Vial SQ ACHS [facility] Protocol Levothyroxine Sodium 150 mcg 09/06/23 21:00 Levothyroxine 75 Mcg Tab PO HS [facility] Memantine 10 mg 09/06/23 09:00 Memantine 10 Mg Tab PO BID [facility] Miscellaneous Information 1 each 09/06/23 01:05 Magnesium Replacement Protocol 1 Each Misc MISCELLANE DAILY PRN Per Protocol Protocol Miscellaneous Information 1 each 09/06/23 01:05 Potassium Replacement Protocol 1 Each Misc MISCELLANE DAILY PRN Per Protocol Protocol Naloxone HCl 0.2 mg 09/06/23 03:05 Naloxone 0.4 Mg/Ml 1 Ml Vial IV Q2M PRN Opioid Reversal Oseltamivir Phosphate 75 mg 09/06/23 09:00 Oseltamivir 75 Mg Cap PO 09/07/23 23:00 Q12HR [facility] Protocol Prednisone 5 mg 09/06/23 09:00 Prednisone 5 Mg Tab PO DAILY [facility] Intake and Output 09/05/23 09/06/23 09/06/23 22:59 06:59 14:59 Other: Weight 77.111 kg 09/05/23 23:55 09/05/23 23:55
[2023-09-06] MEDS: INSULIN ASPART (NovoLOG) 100 UNIT/ML VIAL SQ SCH (12:32)
--- NOTE | 2023-09-06 14:41 | P.PN ---
Progress Note - Text Progress Note Date: 09/06/23 Patient's primary qlikview developer is at [facility]. Will continue patient on heparin drip. On IV Lasix 40 twice daily, pending transfer to [facility] for further management. Accepting physician Dr. Katz. Family is adamant that patient is in addisonian crisis. However blood pressure has been persistently stable and she is actually hypertensive. Blood sugars have been within normal limits. She did receive IV Solu-Medrol as well as IV hydrocortisone when she first presented to the hospital. I will continue her home dose of oral steroids.
[2023-09-06 15:20] VITALS: RESP 18
[2023-09-06 15:54] VITALS: BP 147/67; PULSE 73; TEMP 97.9
--- NOTE | 2023-09-06 18:35 | P.DS ---
Providers Date of admission: 09/06/23 03:07 Expected date of discharge: 09/06/23 Attending physician: Luisana Gtz MD Consults: 09/06/23 03:05 Consult Physician Urgent Consulting Provider: [facility] Consult Reason/Comments: elevated troponin, CHF Do you want consulting provider notified?: Yes, Notify in am Primary care physician: Georges Hernández [facility] Course: Discharge Diagnosis: Fluid overload, suspect newly diagnosed CHF exacerbation Non-ST elevation ID Altered mental status, likely toxic metabolic encephalopathy in setting of acute illness Hypokalemia and hypomagnesemia Influenza A Hospital Course: 73-year-old female with a PMH of [place]'s disease, celiac disease, type II DM, hypertension, hyperlipidemia, recent influenza type a infection who presents to the emergency room with complaints of shortness of breath. Chest x-ray in the emergency room revealed pulmonary vascular congestion with EKG showing sinus rhythm at 80 bpm with diffuse T wave flattening. Laboratory evaluation was remarkable for troponin 0.471, proBNP 9390, sodium 136, potassium 3.1, and magnesium 1.4. Concern for new CHF exacerbation. Patient was started on IV Lasix, cardiology also consulted. For NSTEMI, likely demand ischemia, but she was placed on heparin drip. 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 Stable at the time of discharge. Blood pressure within normal limits. Patient seen and examined at bedside. Vital signs reviewed and stable. General: Nontoxic, no distress, appears at stated age Derm: Warm, dry Head: Atraumatic, normocephalic, symmetric Eyes: EOMI, no lid lag, anicteric sclera Mouth: No lip lesion, mucus membranes moist Cardiovascular: S1S2 reg, no murmur Lungs: Bilateral rales, no accessory muscle use, supplemental oxygen Abdominal: Soft, nontender to palpation, no guarding, no appreciable organomegaly Ext: No gross muscle atrophy, no edema, no contractures Neuro: CN II-XI grossly intact, no focal neuro deficits Psych: Alert, oriented, appropriate affect A total of 33 minutes of time were spent preparing this complex discharge summary. Patient was transferred on 09/06/2023. Patient Condition at Discharge: Serious Plan - Discharge Summary New Discharge Prescriptions: No Action predniSONE 5 mg PO DAILY metFORMIN HCL [Glucophage] 500 mg PO BID Fenofibrate 160 mg PO HS Fludrocortisone Acetate 0.1 mg PO MOWEFR Fludrocortisone Acetate 0.05 mg PO SUTUTHSA Citalopram Hydrobromide [CeleXA] 40 mg PO HS Atorvastatin [Lipitor] 20 mg PO HS cycloSPORINE 0.05% OPHTH SOLN [Restasis] 1 applicator BOTH EYES Q12H L.acidoph,Paracasei, B.lactis [Probiotic] 1 tab PO HS Folic Acid 1.6 mg PO DAILY Cholecalciferol [Vitamin D3 (25 Mcg = 1000 Iu)] 50 mcg PO DAILY Aspirin [[place] Aspirin EC] 81 mg PO DAILY Levothyroxine Sodium [Synthroid] 150 mcg PO HS buPROPion XL [Wellbutrin XL] 150 mg PO DAILY Memantine [Namenda] 10 mg PO BID Levocetirizine Dihydrochloride [Xyzal] 5 mg PO DAILY Cyanocobalamin (Vitamin B-12) [Vitamin B-12] 3,000 mcg PO DAILY Oseltamivir [Tamiflu] 75 mg PO Q12HR #9 cap Discharge Medication List Fenofibrate 160 mg PO HS 02/28/18 [History] Fludrocortisone Acetate 0.05 mg PO SUTUTHSA 02/28/18 [History] Fludrocortisone Acetate 0.1 mg PO MOWEFR 02/28/18 [History] metFORMIN HCL [Glucophage] 500 mg PO BID 02/28/18 [History] predniSONE 5 mg PO DAILY 02/28/18 [History] Atorvastatin [Lipitor] 20 mg PO HS 02/26/21 [History] Citalopram Hydrobromide [CeleXA] 40 mg PO HS 02/26/21 [History] buPROPion XL [Wellbutrin XL] 150 mg PO DAILY 02/26/21 [History] Aspirin [[place] Aspirin EC] 81 mg PO DAILY 08/30/23 [History] Cholecalciferol [Vitamin D3 (25 Mcg = 1000 Iu)] 50 mcg PO DAILY 08/30/23 [History] Folic Acid 1.6 mg PO DAILY 08/30/23 [History] L.acidoph,Paracasei, B.lactis [Probiotic] 1 tab PO HS 08/30/23 [History] Levocetirizine Dihydrochloride [Xyzal] 5 mg PO DAILY 08/30/23 [History] Memantine [Namenda] 10 mg PO BID 08/30/23 [History] cycloSPORINE 0.05% OPHTH SOLN [Restasis] 1 applicator BOTH EYES Q12H 08/30/23 [History] Cyanocobalamin (Vitamin B-12) [Vitamin B-12] 3,000 mcg PO DAILY 09/03/23 [History] Levothyroxine Sodium [Synthroid] 150 mcg PO HS 09/03/23 [History] Oseltamivir [Tamiflu] 75 mg PO Q12HR #9 cap 09/04/23 [Rx] Follow up Appointment(s)/Referral(s): Georges Godoy MD [Primary Care Provider] - 1-2 days Discharge Disposition: DC/[facility] INTERMEDIATE CARE FAC
[2023-09-06] MEDS ORDERED: LEVOTHYROXINE 75 MCG TAB PO SCH (21:00)
[2023-09-06] MEDS ORDERED: ATORVASTATIN 80 MG TAB PO SCH (21:00)
== END 2023-09-06 17:40 | disposition short-term general hospital (02) | DRG 280 ==
LOC: EC 23:03 → 3SCARD 09-06 03:07
PROVIDERS: ADMIT Internal Medicine; ATTEND Internal Medicine
DX: I11.0 Hypertensive heart disease with heart failure (principal); G92.8 Other toxic encephalopathy; I21.A1 Myocardial infarction type 2; J10.00 Influenza due to other identified influenza virus with unspecified type of pneumonia; E27.1 Primary adrenocortical insufficiency; E27.2 Addisonian crisis; F03.93 Unspecified dementia, unspecified severity, with mood disturbance; E11.9 Type 2 diabetes mellitus without complications; I08.3 Combined rheumatic disorders of mitral, aortic and tricuspid valves; I50.9 Heart failure, unspecified; E03.9 Hypothyroidism, unspecified; E78.5 Hyperlipidemia, unspecified; E83.42 Hypomagnesemia; E87.6 Hypokalemia; F32.A Depression, unspecified; K90.0 Celiac disease; R09.02 Hypoxemia; Z79.82 Long term (current) use of aspirin; Z79.84 Long term (current) use of oral hypoglycemic drugs; Z79.890 Hormone replacement therapy; Z79.899 Other long term (current) drug therapy; Z82.49 Family history of ischemic heart disease and other diseases of the circulatory system; Z88.5 Allergy status to narcotic agent; Z83.3 Family history of diabetes mellitus
CPT/HCPCS: 36415; 71046; 80053; 82024; 82533; 82803; 83605; 83735; 83880; 84145; 84244; 84484; 85025; 85610; 85730; 87040; 93005; 93306; 94640; 96361; 96365; 96366; 96367; 96368; 96375; 99285

== ENCOUNTER → 2023-12-27 | Outpatient (CLI) | payer MEDICARE ==
[2023-12-27 11:07] VITALS: BP 114/79; PULSE 62; RESP 16; TEMP 97.8
[2023-12-27] MEDS: DENOSUMAB 60 MG/ML 1 ML SYRINGE SQ NR (11:09)
== END ==
LOC: PROCWHC3 10:57
PROVIDERS: ATTEND Internal Medicine
DX: M81.0 Age-related osteoporosis without current pathological fracture (principal)
CPT/HCPCS: 96372; J0897